=== PATIENT | male | born 1975 | race Caucasian/White ===

== ENCOUNTER 2020-04-09 16:24 | Outpatient (CLI) | payer OTHER, BC, SELFPAY ==
--- NOTE | ~2020-04-09 | MR_ITS ---
EXAMINATION: MR cervical spine wo con DATE: 04/09/2020 17:25 INDICATION: Left arm pain. TECHNIQUE: Magnetic resonance imaging (MRI) of the cervical spine was performed without intravenous c ontrast. Sequences included sagittal T2-weighted FSE, sagittal STIR FSE, sagittal T1-weighted FSE, ax ial MERGE, and axial T2-weighted FSE. COMPARISON: None FINDINGS: There is kyphosis of cervical spine. There is 2 mm retrolisthesis of C6 on C7. There is 5 d egrees levocurvature of cervical spine. Vertebral body heights are normal. There is mildly decreased disc height at C2-C3 C4-C5, and C5-C6 and moderately decreased disc height at C6-C7. The spinal cord signal intensity is normal. The following disc levels are specifically discussed: C2-C3: There is a central protrusion. There is no uncovertebral joint osteoarthritis. There is severe right and mild left facet joint osteoarthritis. There is mild right neural foraminal stenosis. There is mild central canal stenosis with ventral indentation of spinal cord. C3-C4: There is a central protrusion. There is mild bilateral uncovertebral joint osteoarthritis. The re is mild bilateral facet joint osteoarthritis. There is mild bilateral neural foraminal stenosis. T here is mild central canal stenosis. C4-C5: There is a central protrusion. There is mild bilateral uncovertebral joint osteoarthritis. The re is mild bilateral facet joint osteoarthritis. There is no neural foraminal stenosis. There is no c entral canal stenosis. C5-C6: The disc is bulging and has an annular fissure. There is mild bilateral uncovertebral joint os teoarthritis. There is mild bilateral facet joint osteoarthritis. There is no neural foraminal stenos is. There is mild central canal stenosis with ventral indentation of spinal cord. C6-C7: The disc is bulging. There is severe bilateral uncovertebral joint osteoarthritis. There is mi ld bilateral facet joint osteoarthritis. There is moderate right and mild left neural foraminal steno sis. There is mild central canal stenosis with ventral indentation of spinal cord. C7-T1: The disc does not extend beyond the endplate margin. There is no uncovertebral joint osteoarth ritis. There is moderate bilateral facet joint osteoarthritis. There is mild bilateral neural foramin al stenosis. There is no central canal stenosis. IMPRESSION: 1. Moderate cervical spondylosis. Reviewed, dictated and finalized at location B.
== END 2020-04-09 16:25 | disposition home or self-care (01) ==
PROVIDERS: PCP Family Medicine; Visit Provider Orthopaedic Surgery
DX: M79.605 Pain in left leg (principal); M47.892 Other spondylosis, cervical region
CPT/HCPCS: 72141

== ENCOUNTER 2021-06-04 14:48 | Emergency (ER) | payer SELFPAY ==
--- NOTE | ~2021-06-04 | XR_ITS ---
XR shoulder RT min 2V 06/04/2021 15:54 INDICATION: Right shoulder pain. PROCEDURE: 4 views right shoulder COMPARISON: 05/03/2020 FINDINGS: Fracture, dislocation or subluxation is not identified. The soft tissues appear within norm al limits. No foreign bodies are identified. IMPRESSION: 1: NO ACUTE BONE OR JOINT ABNORMALITY IDENTIFIED. Reviewed, dictated and finalized at location B.
[2021-06-04 15:18] VITALS: BP 130/84; PULSE 93; RESP 16; TEMP 37.1; O2SAT 99
--- NOTE | 2021-06-04 16:39 | ED.GENADULT ---
HPI - General Adult General Chief complaint: Extremity Injury, Upper <Jesus Cohen PA-C - Last Filed: 06/04/21 16:43> Stated complaint: shoulder injury <UBALDO Correa Last Filed: 06/04/21 16:43> Time Seen by Provider: 06/04/21 15:32 <UBALDO Correa Last Filed: 06/04/21 16:43> Source: patient and RN notes reviewed <Jesus Cohen PA-C - Last Filed: 06/04/21 16:43> Mode of arrival: ambulatory <UBALDO Correa Last Filed: 06/04/21 16:43> Limitations: no limitations <UBALDO Correa Last Filed: 06/04/21 16:43> History of Present Illness HPI narrative: Patient is a 46-year-old male who presents for evaluation of right shoulder pain after lifting an object he felt a grinding pain in the right shoulder is since had pain of the shoulder that is deep has history of prior injury with surgery several years ago denies radicular symptoms or paresthesias presents nondistressed <UBALDO Correa Last Filed: 06/04/21 16:43> Related Data Allergies/adverse reactions: Allergies Allergy/AdvReac Type Severity Reaction Status Date / Time naproxen Allergy Mild HIVES Verified 06/26/20 14:33 sulindac Allergy Mild HIVES Verified 06/26/20 14:33 doxycycline Allergy Unknown Unknown Verified 06/26/20 14:33 Sulfa (Sulfonamide Allergy Unknown Unknown Verified 06/26/20 14:33 Antibiotics) sulfanilamide Allergy Unknown Unknown Verified 06/26/20 14:33 tramadol AdvReac Severe Sweating Verified 06/26/20 14:33 <UBALDO Correa Last Filed: 06/04/21 16:43> Review of Systems Review of Systems: All systems reviewed & are unremarkable except as noted in HPI and below <UBALDO Correa Last Filed: 06/04/21 16:43> PMFSH Family History Family History: Family History Other Family history of arthritis Family history of emphysema Family history of malignant neoplasm of breast in first degree relative Family history of seizure disorder <Jesus Cohen PA-C - Last Filed: 06/04/21 16:43> Social History Social History: Social History Smoking packs per day: 0.75 Smoking cigarettes per day: 15.0 Years smoked: 0.25 Smoking pack-years: 0.19 Smoking status: Never smoker Tobacco type: cigarettes Second hand tobacco smoke exposure: No Additional smoking assessment comments: Pt declined offer of smoking cessation options today. Alcohol intake: current Drinks per week: 12 Substance use: never Substance use type: does not use <Jesus Cohen PA-C - Last Filed: 06/04/21 16:43> Exam Narrative: GENERAL: Well-appearing, well-nourished, and in no acute distress. HEAD: Normocephalic, atraumatic. EYES: PERRLA and EOMI. ENT: Nares clear, no rhinorrhea or epistaxis. Mucous membranes moist. NECK: Supple. No adenopathy or masses. CHEST: Clear to auscultation. No respiratory distress. No wheezes rales or rhonchi HEART: Regular rate and rhythm. No murmur heard. EXTREMITIES: Normal range of motion. No edema. Tenderness of the right rotator cuff musculature no deformities noted SKIN: Warm, dry, no rash. NEURO: No focal deficits. Alert and oriented x3. Neurovascularly intact. Capillary refill less than 2-second PSYCH: Normal mood and affect. <Jesus Cohen PA-C - Last Filed: 06/04/21 16:43> Course Course Emergency Course: Patient evaluated the emergency department nondistressed aware of case findings treatment plan and diagnosis will follow up with orthopedic surgery and primary care will be started on medications for his symptoms he is felt appropriate for outpatient reevaluation <Jesus Cohen PA-C - Last Filed: 06/04/21 16:43> Vital Signs Vital signs: Vital Signs Temperature 98.8 F 06/04/21 15:18 Pulse Rate 93 06/04/21 15:18 Respiratory Rate 16 06/04/21 15:1
[2021-06-04 17:15] VITALS: BP 131/82; PULSE 80; RESP 12; O2SAT 99
== END 2021-06-04 17:15 | disposition home or self-care (01) ==
PROVIDERS: Emergency Provider General Practice; PCP Family Medicine
DX: M25.511 Pain in right shoulder (principal); F17.210 Nicotine dependence, cigarettes, uncomplicated
CPT/HCPCS: 73030; 99283

== ENCOUNTER → 2021-08-05 02:55 | Outpatient (CLI) | payer BC, SELFPAY ==
[2021-08-05 19:47] LABS: SARS-CoV-2 RNA PCR Negative
== END ==
PROVIDERS: PCP Family Medicine; Visit Provider Family Medicine
DX: J06.9 Acute upper respiratory infection, unspecified (principal); Z20.822 Contact with and (suspected) exposure to COVID-19
CPT/HCPCS: C9803; U0003; U0005

== ENCOUNTER 2022-06-02 12:37 | Outpatient (CLI) | payer BC, SELFPAY ==
--- NOTE | ~2022-06-02 | XR_ITS ---
EXAMINATION: XR lumbar spine min 4V DATE: 06/02/2022 12:57 INDICATION: Low back pain TECHNIQUE: Anteroposterior, lateral, and bilateral oblique views of the lumbar spine, and cone-down l ateral view of the lumbosacral junction were obtained. COMPARISON: None. FINDINGS: Bone alignment is normal. There is no fracture. The vertebral body heights are normal. The intervertebral disc spaces are maintained. Small anterior/superior endplate osteophytes are seen at L 4. There is mild facet joint osteoarthritis in the lower lumbar spine. IMPRESSION: 1. Mild lumbar spondylosis without acute findings. Reviewed, dictated and finalized at location B.
== END 2022-06-02 12:38 | disposition home or self-care (01) ==
LOC: ANHIMG 12:43
PROVIDERS: PCP Family Medicine; Visit Provider Physician Assistant
DX: M47.896 Other spondylosis, lumbar region (principal)
CPT/HCPCS: 72110

== ENCOUNTER 2023-02-06 09:29 | Emergency (ER) | payer BC, SELFPAY ==
--- NOTE | ~2023-02-06 | US_ITS ---
Limited Abdominal Sonogram: Real-time sonographic imaging of the right upper quadrant was performed. Clinical History: Right upper quadrant pain Findings: The liver appears echogenic, with no evidence of mass lesion or bile duct dilatation. Main portal vein demonstrates normal direction of flow. The gallbladder is partially distended, and appea rs normal with no evidence of gallstone or wall thickening. The common bile duct measures 2 mm. The visualized pancreas, aorta, and IVC are unremarkable. Impression: Diffuse fatty infiltration of liver. Reviewed, dictated and finalized at location M. Impression: Diffuse fatty infiltration of liver.
[2023-02-06 09:43] VITALS: BP 139/95; PULSE 99; RESP 18; TEMP 36.6; O2SAT 100
--- NOTE | 2023-02-06 09:55 | ED.GENADULT ---
HPI - General Adult General Chief complaint: Abdominal Pain Stated complaint: ruq abd pain Time Seen by Provider: 02/06/23 09:43 Source: patient Mode of arrival: ambulatory Limitations: no limitations History of Present Illness HPI narrative: This is a 47-year-old male with PMH of IBS who presents to the ED with chief complaint of right upper quadrant pain at x60 hours. Patient states that he has had this pain since Monday night. States he deals with the similar pains intermittently with the IBS. States that it was worse the previous 2 days but wanted to get it checked out today. States that he has been managing his IBS with diet control over the past couple of years. He does not see primary care or GI for this. Reports intermittent loose stools. Denies fevers, chills, nausea, vomiting, chest pain, shortness of breath, flank pain, urinary symptoms. Related Data Allergies Allergy/AdvReac Type Severity Reaction Status Date / Time naproxen Allergy Mild HIVES Verified 06/01/22 14:22 sulindac Allergy Mild HIVES Verified 06/01/22 14:22 doxycycline Allergy Unknown Unknown Verified 06/01/22 14:22 Sulfa (Sulfonamide Allergy Unknown Unknown Verified 06/01/22 14:22 Antibiotics) sulfanilamide Allergy Unknown Unknown Verified 06/01/22 14:22 tramadol AdvReac Severe Sweating Verified 06/01/22 14:22 PMFSH Past Medical History Medical History BMI greater than 30 Degeneration of spine IBS (irritable bowel syndrome) Right shoulder injury (2004) tendon Surgical History Surgical History History of shoulder surgery right side Family History Family History Other Family history of arthritis Family history of emphysema Family history of malignant neoplasm of breast in first degree relative Family history of seizure disorder Social History Social History (Updated 06/01/22 @ 14:26 by Sosa Melvin CMA) Smoking packs per day: 0.5 Smoking cigarettes per day: 10.0 Years smoked: 0.25 Smoking pack-years: 0.13 Smoking status: Current every day smoker Tobacco type: cigarettes Second hand tobacco smoke exposure: No Alcohol intake: current Drinks per week: 8 Substance use: never Substance use type: does not use Exam Narrative: GENERAL: Well-appearing, well-nourished, and in no acute distress. HEAD: Normocephalic, atraumatic. EYES: PERRLA and EOMI. ENT: Nares clear, no rhinorrhea or epistaxis. Mucous membranes moist. Oropharynx without tonsillar hypertrophy exudate or other lesions. NECK: Supple. No adenopathy or masses. CHEST: No respiratory distress. Clear to auscultation. No wheezes rales or rhonchi HEART: Regular rate and rhythm. No murmur heard. Normal peripheral pulses. ABDOMEN: Mild right upper quadrant tenderness. Soft, otherwise nontender, nondistended, normal active bowel sounds. MSK: Normal range of motion. No edema. SKIN: Warm, dry, no rash. NEURO: Alert and oriented x3. No focal deficits. PSYCH: Normal mood and affect. Course Vital Signs Vital signs: Vital Signs Temperature 97.9 F 02/06/23 09:43 Pulse Rate 99 02/06/23 09:43 Respiratory Rate 18 02/06/23 09:43 Blood Pressure 139/95 H 02/06/23 09:43 Pulse Oximetry 100 02/06/23 09:43 Oxygen Delivery Room Air 02/06/23 09:43 Temperature 97.9 F 02/06/23 09:43 Pulse Rate 99 02/06/23 09:43 Respiratory Rate 18 02/06/23 09:43 Blood Pressure 139/95 H 02/06/23 09:43 Pulse Oximetry 100 02/06/23 09:43 Oxygen Delivery Room Air 02/06/23 09:43 Medical Decision Making [facility] Narrative Medical decision making narrative: This is a 47-year-old male who presents to the ED with chief complaint of right upper quadrant pain x2 days. Vitals are normal. Exam shows mild tenderness to the right upper quadrant, otherwise exam i
[2023-02-06 10:07] LABS: Basophils Percent Auto 0.4 % (0.2-1.2); Eosinophils Absolute Auto 0.1 K/mm3 (0-0.3); Eosinophils Percent Auto 1.2 % (0-4.4); Hematocrit 39.9 % (42.0-52.0); Hemoglobin 14.2 g/dL (14.0-18.0); Immature Granulocyte Absolute 0.04 K/mm3 (0.00-0.031); Immature Granulocyte Percent A 0.6 % (0-0.5); Lymphocytes Percent Auto 20.7 % (18.3-44.2); Mean Corpuscular HGB Conc 35.6 g/dl (32-36); Mean Corpuscular Hemoglobin 31.5 pg (26-34); Mean Corpuscular Volume 88.5 fl (80-100); Mean Platelet Volume 9.4 fl (7.4-10.4); Monocytes Absolute Auto 0.5 K/mm3 (0.1-0.6); Monocytes Percent Auto 7.9 % (2.6-8.5); Neutrophils Absolute Auto 4.7 K/mm3 (1.3-6.7); Neutrophils Percent Auto 69.2 % (45.5-73.1); Platelet Count Result 262 k/mm3 (150-375); Red Blood Count 4.51 M/mm3 (4.6-6.20); Red Cell Distribution Width 12.1 % (11.5-14.5); White Blood Count 6.8 K/mm3 (4.5-10.0)
[2023-02-06] MEDS: SODIUM CHLORIDE 0.9% IV 1,000 ML 999 ML IV CONT (10:12)
[2023-02-06] MEDS: DICYCLOMINE HCL INJ 20 MG/2 ML VIAL IM (10:12)
[2023-02-06 10:16] LABS: Alanine Aminotransferase 31 U/L (6-50); Albumin Level 4.8 g/dL (3.5-5.1); Alkaline Phosphatase 61 U/L (38-126); Anion Gap 8 mmol/L (8-16); Aspartate Amino Transferase 28 U/L (17-59); Bilirubin,Total 0.5 mg/dL (0.2-1.3); Blood Urea Nitrogen 15 mg/dL (9-20); Calcium 9.6 mg/dL (8.4-10.2); Carbon Dioxide 30 mmol/L (22-30); Chloride 103 mmol/L (98-107); Estimated CRCL calculation 86 ml/min; Estimated Glomerular Filt Rate > 60; Glucose 98 mg/dL (65-110); Lipase 71 U/L (23-300); Sodium 141 mmol/L (137-145)
[2023-02-06 10:19] LABS: Appearance Urine Clear (Clear); Bilirubin Urine Negative (Negative); Blood Urine Negative (Negative); Color Urine Yellow (Yellow); Glucose Urine UA Negative (Negative); Ketones Urine Negative (Negative); Leukocyte Esterase Ur Negative LEU/UL (Negative); Nitrate Urine Negative (Negative); Protein Urine Negative (Negative); Specific Grav Ur 1.014 (1.001-1.035); Urobilinogen Urine 0.2 mg/dL (<2.0)
[2023-02-06 10:50] LABS: Add Urine Microscopic? NO
[2023-02-06 11:23] VITALS: BP 125/85; PULSE 74; RESP 16; O2SAT 99
== END 2023-02-06 11:25 | disposition home or self-care (01) ==
PROVIDERS: Emergency Provider Physician Assistant; PCP Family Medicine
DX: R10.31 Right lower quadrant pain (principal); F17.210 Nicotine dependence, cigarettes, uncomplicated
CPT/HCPCS: 36415; 76705; 80053; 81003; 83690; 85025; 96360; 96372; 99284; J0500; J7030

== ENCOUNTER 2023-03-07 01:55 | Day surgery (SDC) | payer BC, SELFPAY ==
[2023-02-24 13:23] VITALS: BMI 31.6
[2023-03-07 09:01] VITALS: BP 131/82; PULSE 74; RESP 20; TEMP 36.6; O2SAT 98
[2023-03-07] MEDS: LACTATED RINGERS 1,000 ML 150 ML IV CONT (09:12)
--- NOTE | 2023-03-07 09:21 | WPDANESEPPF ---
Anes - Initial Pre Proc Eval Procedure: Operation Date: 03/07/23 10:15 Proposed Procedures p Esophagogastroduodenoscopy & Colonoscopy - Mohamud Soliz MD Date/Time: 03/07/23 09:21 Surgeon: Mohamud Soliz MD Pre Op Diagnosis: right upper quad pain, mixed IBS Patient Data Age: 48 Gender: M Height: 1.78 m Weight: 100.6 kg Last Vital Signs Temp 98 F 03/07/23 09:01 Pulse 74 03/07/23 09:01 Resp 20 03/07/23 09:01 BP 131/82 03/07/23 09:01 Pulse Ox 98 03/07/23 09:01 O2 Del Method Room Air 03/07/23 09:01 Allergies Allergy/AdvReac Type Severity Reaction Status Date / Time naproxen Allergy Mild HIVES Verified 03/07/23 08:58 sulindac Allergy Mild HIVES Verified 03/07/23 08:58 doxycycline Allergy Unknown Unknown Verified 03/07/23 08:58 Sulfa (Sulfonamide Allergy Unknown Unknown Verified 03/07/23 08:58 Antibiotics) sulfanilamide Allergy Unknown Unknown Verified 03/07/23 08:58 tramadol AdvReac Severe Sweating Verified 03/07/23 08:58 Home Medications Medication Instructions Recorded Confirmed Type metoprolol succinate 50 mg See Rx Instructions .Route 10/09/22 03/07/23 Rx tablet,extended release 24 hr .COMPLEX #90 tabs cyclobenzaprine 10 mg tablet 10 mg PO TID PRN muscle spasm #90 11/28/22 03/01/23 Rx tabs omeprazole 40 mg capsule,delayed 40 mg PO DAILY #30 caps 02/15/23 03/01/23 Rx release dicyclomine 20 mg tablet 20 mg PO QID PRN cramping 02/24/23 03/01/23 History docusate sodium 250 mg capsule 500 mg PO DAILY 02/24/23 03/01/23 History fexofenadine 30 mg tablet 60 mg PO DAILY 02/24/23 03/01/23 History loratadine 10 mg tablet (Claritin) 10 mg PO DAILY 02/24/23 03/01/23 History sertraline 50 mg tablet 50 mg PO DAILY #30 tabs 03/01/23 03/01/23 Rx rosuvastatin 10 mg tablet (Crestor) 10 mg PO DAILY #90 tabs 03/02/23 03/07/23 Rx Patient hx anesthesia problems: none Family hx anesthesia problems: none Results Review: All pre-operative results and documents have been reviewed as part of the pre-operative evaluation. [facility] Past Medical History Medical History Abdominal bloating BMI greater than 30 Degeneration of spine IBS (irritable bowel syndrome) Mixed irritable bowel syndrome Right shoulder injury (2004) tendon RUQ discomfort Surgical History Surgical History History of shoulder surgery right side Family History Family History Other Family history of arthritis Family history of emphysema Family history of malignant neoplasm of breast in first degree relative Family history of seizure disorder Social History Social History Smoking packs per day: 0.5 Smoking cigarettes per day: 10.0 Years smoked: 4 Smoking pack-years: 2.00 Smoking status: Former smoker Tobacco type: cigarettes Second hand tobacco smoke exposure: No Alcohol intake: current Drinks per week: 8 Alcohol use details: Hx abuse. Now only drinks occasionally. Substance use: never Substance use type: does not use Lack of Transportation: No Lack of Food: Never True Current Housing: I Have Housing Concerned About Future Housing: No Difficulty Paying Gas/Electric Bills: No Difficulty Paying for Meds: No Currently Unemployed: No Education: Trade/Vocational Certificate Difficulty w/ Childcare or Family Care: No Living arrangements: with family Occupation/Education: occupation Gender identity (if verbalized by the patient): Male Spiritual care concerns: No Agree to blood products: Yes Anes - Eval Final PreProcedure Day of Procedure 03/07/23 09:21 Patient weight: obese Heart: regular rate and rhythm Lungs: clear to auscultation Airway: Mallampati scale class II Neurological: alert and oriented
--- NOTE | 2023-03-07 09:57 | WPDHPUPDATE1 ---
History and Physical Update Update Date/Time: 03/07/23 09:57 History and Physical has been reviewed, including an updated exam of the patient. There are NO changes in the patient's condition. Risks, benefits, and alternatives have been discussed and questions answered. Patient agrees to proceed with procedure.
--- NOTE | 2023-03-07 10:15 | SUR.OPER ---
EGD ended 1009, colonoscopy started 1014
[2023-03-07 10:35] VITALS: BP 112/70; PULSE 68; RESP 15; O2SAT 98
[2023-03-07 10:45] VITALS: BP 114/73; PULSE 77; RESP 21; O2SAT 98
[2023-03-07 10:52] VITALS: BP 115/83; PULSE 70; RESP 17; O2SAT 99
== END 2023-03-07 11:37 | disposition home or self-care (01) ==
PROVIDERS: PCP Family Medicine; Visit Provider Internal Medicine Gastroenterology
PROC: 0DJ08ZZ Inspection of Upper Intestinal Tract, Via Natural or Artificial Opening Endoscopic (ICD-10-PCS; CPT 43235; principal; 2023-03-07 10:15)
DX: Z12.11 Encounter for screening for malignant neoplasm of colon (principal); D12.2 Benign neoplasm of ascending colon; R10.11 Right upper quadrant pain; K76.0 Fatty (change of) liver, not elsewhere classified; K58.2 Mixed irritable bowel syndrome; Z87.891 Personal history of nicotine dependence; E66.9 Obesity, unspecified; Z68.31 Body mass index [BMI] 31.0-31.9, adult
CPT/HCPCS: 45385; 43239; 88305; J2704; J7120

== ENCOUNTER → 2023-05-15 10:43 | Outpatient (CLI) | payer BC, SELFPAY ==
--- NOTE | ~2023-05-15 | US_ITS ---
EXAMINATION: US thyroid DATE: 05/15/2023 11:18 INDICATION: Thyroid nodule. Iodine deficiency related diffuse goiter. TECHNIQUE: Multiple ultrasound images of the thyroid were obtained. COMPARISON: None. FINDINGS: The right thyroid lobe measures 4.7 x 1.5 x 1.6 cm. The left thyroid lobe measures 4.0 x 1.4 x 1.5 c m. There is normal echotexture and echogenicity throughout the thyroid gland. No discrete nodules id entified. Normal vascular flow is present. IMPRESSION: 1. Normal thyroid. Reviewed, dictated and finalized at location E. IMPRESSION: 1. Normal thyroid.
== END ==
PROVIDERS: PCP Physician Assistant; Visit Provider Physician Assistant
DX: E01.0 Iodine-deficiency related diffuse (endemic) goiter (principal)
CPT/HCPCS: 76536

== ENCOUNTER 2023-06-03 10:09 | Outpatient (CLI) | payer BC, SELFPAY ==
--- NOTE | 2023-06-03 10:21 | ECG_ITS ---
Measurements Intervals [place] Rate: 77 P: 16 CT: 132 QRS: 16 QRSD: 103 T: 11 QT: 387 QTc: 438 Interpretive Statements SINUS RHYTHM NORMAL ELECTROCARDIOGRAM NO PREVIOUS ECG AVAILABLE FOR COMPARISON Electronically Signed On 06-04-2023 8:14:45 CDT by Willard Garner M.D.
[2023-06-03 11:20] LABS: Alanine Aminotransferase 57 U/L (6-50); Albumin Level 4.5 g/dL (3.5-5.1); Alkaline Phosphatase 74 U/L (38-126); Anion Gap 6 mmol/L (8-16); Aspartate Amino Transferase 45 U/L (17-59); Bilirubin,Total 0.6 mg/dL (0.2-1.3); Blood Urea Nitrogen 12 mg/dL (9-20); Calcium 9.1 mg/dL (8.4-10.2); Carbon Dioxide 30 mmol/L (22-30); Chloride 103 mmol/L (98-107); Cholesterol 209 mg/dL (0-200); Estimated Glomerular Filt Rate > 60; Glucose 92 mg/dL (65-110); HDL Direct 42 mg/dL; Potassium 4.1 mmol/L (3.4-5.0); Sodium 139 mmol/L (137-145); Triglycerides 449 mg/dL (<150)
[2023-06-03 11:32] LABS: LDL Cholesterol Direct 89 mg/dL
[2023-06-03 11:49] LABS: Prostate Specific Antigen 0.3 ng/mL (< OR = 4.0); Thyroid Stimulating Hormone 0.615 uIU/mL (0.465-4.680)
[2023-06-03 11:54] LABS: Free T4 Free Thyroxine 0.74 ng/mL (0.78-2.19)
== END 2023-06-03 10:10 | disposition home or self-care (01) ==
LOC: ANHLAB 10:10
PROVIDERS: PCP Physician Assistant; Visit Provider Physician Assistant
DX: Z12.5 Encounter for screening for malignant neoplasm of prostate (principal); R53.83 Other fatigue; I10 Essential (primary) hypertension; Z13.1 Encounter for screening for diabetes mellitus; Z13.220 Encounter for screening for lipoid disorders
CPT/HCPCS: 36415; 80053; 80061; 84153; 84439; 84443; 93005; G0103

== ENCOUNTER 2023-07-25 11:58 | Emergency (ER) | payer OTHER, SELFPAY ==
[2023-07-25 12:09] VITALS: BP 117/68; PULSE 89; RESP 16; TEMP 37.3; O2SAT 100
--- NOTE | 2023-07-25 12:45 | ED.URI ---
HPI - URI/Sore Throat General Chief Complaint: Upper Respiratory Infection Stated Complaint: COVID+ Time Seen by Provider: 07/25/23 12:46 Source: patient, RN notes reviewed and old records reviewed Mode of arrival: ambulatory Limitations: no limitations History of Present Illness HPI Narrative: 48-year-old male presents to the [facility] after tested positive for COVID at home. Symptoms started yesterday. Needing a work note. Patient reports generalized body aches, fevers of 100.6, sore throat since yesterday. Patient also reports coughing, dry nonproductive Reports that he has taken Tylenol Onset (ago): day(s) (1) Related Data Home Medications Medication Instructions Recorded Confirmed fexofenadine 30 mg tablet 60 mg PO DAILY 02/24/23 07/25/23 loratadine 10 mg tablet (Claritin) 10 mg PO DAILY 02/24/23 12 Allergies Allergy/AdvReac Type Severity Reaction Status Date / Time naproxen Allergy Mild HIVES Verified 07/25/23 12:23 sulindac Allergy Mild HIVES Verified 07/25/23 12:23 doxycycline Allergy Unknown Unknown Verified 07/25/23 12:23 Sulfa (Sulfonamide Allergy Unknown Unknown Verified 07/25/23 12:23 Antibiotics) sulfanilamide Allergy Unknown Unknown Verified 07/25/23 12:23 tramadol AdvReac Severe Sweating Verified 07/25/23 12:23 Review of Systems Review of Systems: All systems reviewed & are unremarkable except as noted in HPI and below Constitutional: Constitutional: Reports as per HPI, Reports body ache(s), Reports fatigue and Reports fever(s) Eyes: Eyes: Reports no additional eye complaints ENT: Reports as per HPI and Reports sore throat Cardiovascular: Cardiovascular: Reports no additional cardiovascular complaints, Denies chest pain and Denies dyspnea Respiratory: Respiratory: Reports as per HPI, Denies chest congestion, Reports cough and Denies dyspnea Gastrointestinal: Gastrointestinal: Reports no additional gastrointestinal complaints, Denies abdominal pain, Denies nausea and Denies vomiting Musculoskeletal: Musculoskeletal: Reports as per HPI and Reports myalgias Integumentary/Breasts: Skin/Breast: Reports system reviewed and no additional complaints, except as docu Neurologic: Reports system reviewed and no additional complaints, except as documented Psychiatric: Psychiatric: Reports no additional psychiatric complaints Allergic/Immunologic: Allergic/Immunologic: Reports no additional allergic/immunologic complaints PMFSH Past Medical History Medical History Abdominal bloating Anxiety BMI greater than 30 Degeneration of spine IBS (irritable bowel syndrome) Mixed irritable bowel syndrome Right shoulder injury (2004) tendon RUQ discomfort Surgical History Surgical History History of shoulder surgery right side Family History Family History Other Family history of arthritis Family history of emphysema Family history of malignant neoplasm of breast in first degree relative Family history of seizure disorder Social History Social History Smoking packs per day: 0.5 Smoking cigarettes per day: 10.0 Years smoked: 4 Smoking pack-years: 2.00 Smoking status: Former smoker Tobacco type: cigarettes Second hand tobacco smoke exposure: No Alcohol intake: current Drinks per week: 8 Alcohol use details: Hx abuse. Now only drinks occasionally. Substance use: never Substance use type: does not use Lack of Transportation: No Lack of Food: Never True Current Housing: I Have Housing Concerned About Future Housing: No Difficulty Paying Gas/Electric Bills: No Difficulty Paying for Meds: No Currently Unemployed: No Education: Trade/Vocational Certificate Difficulty w/ Childcare or Family Care: No Living arrangements: with famil
== END 2023-07-25 12:59 | disposition home or self-care (01) ==
PROVIDERS: Emergency Provider Nurse Practitioner; PCP Family Medicine
DX: U07.1 COVID-19 (principal); F41.9 Anxiety disorder, unspecified
CPT/HCPCS: 87426; 99213; C9803; G0463

== ENCOUNTER 2023-10-13 10:51 | Emergency (ER) | payer OTHER, SELFPAY ==
--- NOTE | 2023-10-13 10:52 | ED.EAR ---
HPI - Ear Problem General Chief complaint: Ear Stated complaint: Right Ear Irritation Time Seen by Provider: 10/13/23 10:52 Source: patient Mode of arrival: ambulatory Limitations: no limitations History of Present Illness HPI Narrative: Patient is a 48-year-old male who presents with 2 weeks of right ear irritation, intermittent dizziness and nausea and sinus pressure. Patient takes daily allergy medicine. Denies any fever, chills, vomiting, diarrhea, sore throat, cough. MD Complaint: ear pain Related Data Home Medications Medication Instructions Recorded Confirmed fexofenadine 30 mg tablet 60 mg PO DAILY 02/24/23 10/13/23 loratadine 10 mg tablet (Claritin) 10 mg PO DAILY 02/24/23 10/13/23 fluticasone propionate 50 2 spray intranasal DAILY 10/13/23 10/13/23 mcg/actuation nasal spray,suspension Allergies Allergy/AdvReac Type Severity Reaction Status Date / Time naproxen Allergy Mild HIVES Verified 10/13/23 10:55 sulindac Allergy Mild HIVES Verified 10/13/23 10:55 doxycycline Allergy Unknown Unknown Verified 10/13/23 10:55 Sulfa (Sulfonamide Allergy Unknown Unknown Verified 10/13/23 10:55 Antibiotics) sulfanilamide Allergy Unknown Unknown Verified 10/13/23 10:55 tramadol AdvReac Severe Sweating Verified 10/13/23 10:55 Review of Systems Review of Systems: All systems reviewed & are unremarkable except as noted in HPI and below Constitutional: Constitutional: Denies body ache(s), Denies chills, Denies fever(s), Denies headache(s) and Denies malaise Eyes: Eyes: Denies blurry vision, Denies eye discharge and Denies irritation ENT: Reports otalgia, Denies headache(s), Denies nasal congestion, Denies nasal discharge and Denies sore throat Cardiovascular: Cardiovascular: Denies chest pain, Denies edema, Denies palpitations and Denies dyspnea on exertion Respiratory: Respiratory: Denies cough and Denies dyspnea on exertion Gastrointestinal: Gastrointestinal: Denies abdominal pain, Denies diarrhea, Reports nausea and Denies vomiting Musculoskeletal: Musculoskeletal: Denies back pain, Denies arthralgias and Denies muscle weakness Integumentary/Breasts: Skin/Breast: Denies pruritus and Denies rash Neurologic: Reports dizziness and Denies headache(s) Psychiatric: Psychiatric: Reports no additional psychiatric complaints Endocrine: Endocrine: Denies palpitations PMFSH Past Medical History Medical History Abdominal bloating Anxiety BMI greater than 30 Degeneration of spine IBS (irritable bowel syndrome) Mixed irritable bowel syndrome Right shoulder injury (2004) tendon RUQ discomfort Surgical History Surgical History History of shoulder surgery right side Family History Family History Other Family history of arthritis Family history of emphysema Family history of malignant neoplasm of breast in first degree relative Family history of seizure disorder Social History Social History Smoking packs per day: 0.5 Smoking cigarettes per day: 10.0 Years smoked: 4 Smoking pack-years: 2.00 Smoking status: Former smoker Tobacco type: cigarettes Second hand tobacco smoke exposure: No Alcohol intake: current Drinks per week: 8 Alcohol use details: Hx abuse. Now only drinks occasionally. Substance use: never Substance use type: does not use Lack of Transportation: No Lack of Food: Never True Current Housing: I Have Housing Concerned About Future Housing: No Difficulty Paying Gas/Electric Bills: No Difficulty Paying for Meds: No Currently Unemployed: No Education: Trade/Vocational Certificate Difficulty w/ Childcare or Family Care: No Living arrangements: with family Occupation/Education: occupation Gender identity (if verbalized by polo
[2023-10-13 11:00] VITALS: BP 126/73; PULSE 74; RESP 18; TEMP 36.8; O2SAT 100
== END 2023-10-13 11:20 | disposition home or self-care (01) ==
PROVIDERS: Emergency Provider Nurse Practitioner Family; PCP Family Medicine
DX: J01.40 Acute pansinusitis, unspecified (principal); Z87.891 Personal history of nicotine dependence; F41.9 Anxiety disorder, unspecified
CPT/HCPCS: 99213; G0463

== ENCOUNTER 2023-11-08 09:10 | Outpatient (CLI) | payer OTHER, SELFPAY ==
[2023-11-08 09:56] LABS: Alanine Aminotransferase 47 U/L (6-50); Albumin Level 4.9 g/dL (3.5-5.1); Alkaline Phosphatase 55 U/L (38-126); Anion Gap 7 mmol/L (4-12); Aspartate Amino Transferase 41 U/L (17-59); Bilirubin,Total 0.6 mg/dL (0.2-1.3); Blood Urea Nitrogen 15 mg/dL (9-20); Calcium 9.6 mg/dL (8.4-10.2); Carbon Dioxide 29 mmol/L (22-30); Chloride 101 mmol/L (98-107); Cholesterol 213 mg/dL (0-200); Estimated Glomerular Filt Rate > 60; Glucose 96 mg/dL (65-110); HDL Direct 48 mg/dL; Potassium 4.5 mmol/L (3.4-5.0); Sodium 137 mmol/L (137-145); Triglycerides 254 mg/dL (<150)
[2023-11-08 10:07] LABS: LDL Cholesterol Direct 121 mg/dL
[2023-11-08 10:22] LABS: Free T4 Free Thyroxine 0.69 ng/mL (0.78-2.19)
[2023-11-17 11:09] LABS: T3 Free 2.8 pg/mL
== END 2023-11-08 09:11 | disposition home or self-care (01) ==
LOC: ANHLAB 09:12
PROVIDERS: PCP Family Medicine; Visit Provider Physician Assistant
DX: R53.83 Other fatigue (principal); Z13.1 Encounter for screening for diabetes mellitus; Z13.220 Encounter for screening for lipoid disorders
CPT/HCPCS: 36415; 80053; 80061; 84439; 84443; 84480

== ENCOUNTER 2024-05-10 21:41 | Inpatient (IN) | payer OTHER, SELFPAY ==
--- NOTE | ~2024-05-10 | CT_ITS ---
CT of the Abdomen and Pelvis: Indication: Postop fever, appendicitis Technique: 2.5 mm axial scans were obtained through the abdomen and pelvis following intravenous adm inistration of 100 cc of Omnipaque 350. Dose reduction technique was used on this scan by utilizing a utomated exposure control and iterative reconstruction technique. The dose-length product (DLP) was 1 242.31 mGy-cm. COMPARISON: 05/03/2024 Findings: Scans through the lung bases are unremarkable. There is diffuse hepatic steatosis. The spleen, pancreas, gallbladder, adrenals and kidneys are withi n normal limits. There are atherosclerotic calcifications of the aorta. No lymphadenopathy. Percutaneous drainage catheter in place. No bowel obstruction evident. There is extensive haziness th roughout the mesentery, mild inflammatory or postoperative change. There is a small abscess in the an terior right lower quadrant measuring 3.6 x 1.7 x 1.8 cm (axial image 144, coronal image 37). Possibl e additional small pelvic abscess, measuring 2.2 cm (coronal image 86, axial image 167). Soft tissue gas in the anterior subcutaneous soft tissues and scrotum is probably related to recent surgery. Images through the pelvis were performed. Urinary bladder unremarkable. Prostate gland unremarkable. Impression: 3.6 x 1.7 x 1.8 cm anterior right lower quadrant abscess. Possible additional 2.2 cm pelvic abscess. Please see details above. Extensive haziness throughout the mesentery could reflect residual inflammatory change and/or postope rative change. Percutaneous drainage catheter in place. Diffuse hepatic steatosis. Reviewed, dictated and finalized at location . Impression: 3.6 x 1.7 x 1.8 cm anterior right lower quadrant abscess. Possible additional 2 .2 cm pelvic abscess. Please see details above. Extensive haziness throughout the mesentery could reflect residual inflammatory change and/or postoperative change. Percutaneous drainage catheter in place. Diffuse hepatic steatosis.
--- NOTE | ~2024-05-10 | CT_ITS ---
EXAMINATION: CT abdomen pelvis w con DATE: 05/11/2024 01:00 INDICATION: Abdomen pain TECHNIQUE: Computed tomography (CT) of the abdomen and pelvis was performed with 100 cc Omnipaque 350 intravenous contrast. The dose-length product was 1032.93 mGy-cm. Automated exposure control and ite rative reconstruction technique were employed. COMPARISON: CT dated 01/27/2012. FINDINGS: Heart size normal. No significant pleural or pericardial effusion. Fatty infiltration of th e liver. Calcified granulomas of the spleen. The pancreas, adrenal glands and kidneys are unremarkabl e. Gallbladder is present. There is acute appendicitis. Appendix measures 1.6 cm transversely with parmar rrounding inflammatory changes. No evidence for perforation or abscess. Nonobstructive bowel gas seun rui. No free air or free fluid. IMPRESSION: 1. Acute uncomplicated appendicitis. Reviewed, dictated and finalized at location B.
[2024-05-10 22:03] VITALS: BP 136/67; PULSE 86; RESP 20; TEMP 37.1; O2SAT 98
[2024-05-11] VITALS (17 sets, daily range): BP systolic 112–156; BP diastolic 66–98; PULSE 71–107; RESP 11–20; TEMP 36.8–37.4; O2SAT 94–100; BMI 32.0
[2024-05-11 00:24] LABS: Basophils Percent Auto 0.2 % (0.2-1.2); Eosinophils Percent Auto 0.1 % (0-4.4); Hematocrit 33.4 % (42.0-52.0); Hemoglobin 11.9 g/dL (14.0-18.0); Immature Granulocyte Absolute 0.09 K/mm3 (0.00-0.031); Immature Granulocyte Percent A 0.5 % (0-0.5); Lymphocytes Absolute Auto 0.76 K/mm3 (0.9-3.2); Lymphocytes Percent Auto 4.4 % (18.3-44.2); Mean Corpuscular HGB Conc 35.6 g/dl (32-36); Mean Corpuscular Hemoglobin 32.4 pg (26-34); Mean Platelet Volume 9.6 fl (7.4-10.4); Neutrophils Absolute Auto 15.3 K/mm3 (1.3-6.7); Neutrophils Percent Auto 88.8 % (45.5-73.1); Platelet Count Result 310 k/mm3 (150-375); Red Blood Count 3.67 M/mm3 (4.6-6.20); Red Cell Distribution Width 12.4 % (11.5-14.5); White Blood Count 17.3 K/mm3 (4.5-10.0)
[2024-05-11 00:26] LABS: Add Urine Microscopic? YES; Appearance Urine Clear (Clear); Bacteria Urine None Seen /hpf; Bilirubin Urine Negative (Negative); Blood Urine Negative (Negative); Color Urine Yellow (Yellow); Glucose Urine UA Negative (Negative); Ketones Urine Negative (Negative); Leukocyte Esterase Ur Negative LEU/UL (Negative); Nitrate Urine Negative (Negative); Non Pathogenic Casts 0-2; Protein Urine 2+ mg/dL (Negative); RBC Urine 0-2 /hpf (0-2); Specific Grav Ur 1.024 (1.001-1.035); Squamous Epithelial Cell Urine None Seen /hpf (Few); WBC Urine 0-5 /hpf (0-3); pH Urine 8.5 (5.0-9.0)
[2024-05-11 00:30] LABS: Alanine Aminotransferase 31 U/L (6-50); Albumin Level 5.1 g/dL (3.5-5.1); Alkaline Phosphatase 55 U/L (38-126); Anion Gap 15 mmol/L (4-12); Aspartate Amino Transferase 30 U/L (17-59); Bilirubin,Total 0.7 mg/dL (0.2-1.3); Blood Urea Nitrogen 13 mg/dL (9-20); Calcium 9.2 mg/dL (8.4-10.2); Carbon Dioxide 26 mmol/L (22-30); Chloride 97 mmol/L (98-107); Estimated CRCL calculation 92 ml/min; Estimated Glomerular Filt Rate > 60; Glucose 133 mg/dL (65-110); Lipase 29 U/L (23-300); Potassium 4.3 mmol/L (3.4-5.0); Sodium 138 mmol/L (137-145)
[2024-05-11] MEDS: ONDANSETRON INJ 4 MG/2 ML VIAL IV PUSH (01:23)
[2024-05-11] MEDS: MORPHINE SULFATE (*CRX) 4 MG/ML INJ IV PUSH (01:23)
[2024-05-11] MEDS: LACTATED RINGERS 1,000 ML 999 ML IV CONT (01:24)
[2024-05-11] MEDS: PIPERACILLIN/TAZ 4.5G/NS 100ML 4.5 GM/100 ML BAG IVPB ×2 (02:37→09:39)
--- NOTE | 2024-05-11 02:44 | ED.ABDPAIN ---
HPI - Abdominal Pain General Chief Complaint: Abdominal Pain Stated Complaint: Abd pain, n/v Time Seen by Provider: 05/10/24 23:50 History of Present Illness HPI narrative: 49-year-old male with history of hypertension, hyperlipidemia, IBS and anxiety. He presents to the emergency room with a chief complaint of right-sided abdominal pain. Symptoms are going on for several days, worsening in intensity associated with nausea and vomiting. No urinary complaints, no dysuria, hematuria or difficulties in the restroom. Subjective fever and chills at home. Patient states he feels like this is an episode of his IBS. Denies any recent surgeries, no abdominal surgeries in the past, with otherwise is normal state of health and denies any recent injuries or trauma. Related Data Home Medications Medication Instructions Recorded Confirmed fexofenadine 30 mg tablet 60 mg PO DAILY 02/24/23 10/13/23 loratadine 10 mg tablet (Claritin) 10 mg PO DAILY 02/24/23 10/13/23 fluticasone propionate 50 2 spray intranasal DAILY 10/13/23 10/13/23 mcg/actuation nasal spray,suspension Allergies Allergy/AdvReac Type Severity Reaction Status Date / Time naproxen Allergy Mild HIVES Verified 05/10/24 22:02 sulindac Allergy Mild HIVES Verified 05/10/24 22:02 doxycycline Allergy Unknown Unknown Verified 05/10/24 22:02 Sulfa (Sulfonamide Allergy Unknown Unknown Verified 05/10/24 22:02 Antibiotics) sulfanilamide Allergy Unknown Unknown Verified 05/10/24 22:02 tramadol AdvReac Severe Sweating Verified 05/10/24 22:02 Review of Systems Review of Systems: As reviewed above in HPI [facility] Past Medical History Medical History Abdominal bloating Anxiety Benign essential HTN BMI greater than 30 Degeneration of spine HLD (hyperlipidemia) IBS (irritable bowel syndrome) Mixed irritable bowel syndrome Right shoulder injury (2004) tendon RUQ discomfort Surgical History Surgical History History of shoulder surgery right side Family History Family History Other Family history of arthritis Family history of emphysema Family history of malignant neoplasm of breast in first degree relative Family history of seizure disorder Social History Social History Smoking packs per day: 0.5 Smoking cigarettes per day: 10.0 Years smoked: 4 Smoking pack-years: 2.00 Smoking status: Former smoker Tobacco type: cigarettes Second hand tobacco smoke exposure: No Alcohol intake: current Drinks per week: 8 Alcohol use details: Hx abuse. Now only drinks occasionally. Substance use: never Substance use type: does not use Lack of Transportation: No Lack of Food: Never True Current Housing: I Have Housing Concerned About Future Housing: No Difficulty Paying Gas/Electric Bills: No Difficulty Paying for Meds: No Currently Unemployed: No Education: Trade/Vocational Certificate Difficulty w/ Childcare or Family Care: No Living arrangements: with family Occupation/Education: occupation Gender identity (if verbalized by the patient): Male Spiritual care concerns: No Agree to blood products: Yes Exam Narrative: GENERAL: Uncomfortable appearing but not any acute distress, answering all questions appropriately HEAD: [Normocephalic, atraumatic.] EYES: [PERRLA and EOMI.] ENT: Nares clear, no rhinorrhea or epistaxis. Mucous membranes moist. NECK: Supple. CHEST: [Clear to auscultation. No respiratory distress.] HEART: [Regular rate and rhythm]. No murmur heard. [Normal peripheral pulses.] ABDOMEN: [Soft, nondistended], tenderness to palpation in right lower quadrant, no peritonitis, no CVA tenderness, no suprapubic tenderness, [No rigidity or guarding] EXTREMITIES:
[2024-05-11] MEDS: HYDROmorphone HCL INJ (*CRX) 1 MG/ML SYR 0.5 MG IV PUSH ×3 (03:13→13:54)
[2024-05-11] MEDS: LACTATED RINGERS 1,000 ML 125 ML IV CONT (03:14)
--- NOTE | 2024-05-11 04:36 | ADMGEN ---
This patient, Peter Escobedo, was admitted to [facility] Surg Room 312-01. Patient/family oriented to hospital policies and general routines including ID bracelet, bed and alarms, visiting hours, pain management, procedures, bathroom and other care routines, personal items, smoking policy, room service/diet, and visiting hours. Information on how to activate the Rapid Response Team has been discussed. Patient/Family are encouraged to report perceived risks to care and to ask questions if they do not understand what they are told or what they should do.
[2024-05-11] MEDS: HYDROmorphone HCL INJ (*CRX) 1 MG/ML SYR IV PUSH (09:38)
--- NOTE | 2024-05-11 10:38 | PC.NURSE ---
To OR per [ ], IV [ ]. Report given to [LUIS FERNANDO].
--- NOTE | 2024-05-11 11:20 | WPDANESEPPF ---
Anes - Initial Pre Proc Eval Procedure: Operation Date: 05/11/24 12:00 Proposed Procedures p Laparoscopic Appendectomy, Possible Open - Johnny Hernandez MD Date/Time: 05/11/24 11:20 Surgeon: Johnny Hernandez MD Pre Op Diagnosis: Acute appendicitis Patient Data Age: 49 Gender: M Height: 1.78 m Weight: 101.3 kg Last Vital Signs Temp 37.3 C 05/11/24 10:50 Pulse 82 05/11/24 10:50 Resp 18 05/11/24 10:50 BP 121/69 05/11/24 10:50 Pulse Ox 97 05/11/24 10:50 O2 Del Method Room Air 05/11/24 07:54 FiO2 21 05/11/24 07:54 Allergies Allergy/AdvReac Type Severity Reaction Status Date / Time naproxen Allergy Mild HIVES Verified 05/11/24 10:55 sulindac Allergy Mild HIVES Verified 05/11/24 10:55 doxycycline Allergy Unknown Unknown Verified 05/11/24 10:55 Sulfa (Sulfonamide Allergy Unknown Unknown Verified 05/11/24 10:55 Antibiotics) sulfanilamide Allergy Unknown Unknown Verified 05/11/24 10:55 tramadol AdvReac Severe Sweating Verified 05/11/24 10:55 Home Medications Medication Instructions Recorded Confirmed Type fexofenadine 30 mg tablet 60 mg PO DAILY 02/24/23 05/11/24 History loratadine 10 mg tablet (Claritin) 10 mg PO DAILY 02/24/23 05/11/24 History cyclobenzaprine 10 mg tablet 10 mg PO TID PRN muscle spasm #90 08/21/23 05/11/24 Rx tabs fenofibrate nanocrystallized 145 145 mg PO DAILY #90 tabs 09/29/23 05/11/24 Rx mg tablet omeprazole 40 mg capsule,delayed 40 mg PO DAILY #90 caps 10/09/23 05/11/24 Rx release fluticasone propionate 50 2 spray intranasal DAILY 10/13/23 05/11/24 History mcg/actuation nasal spray,suspension dicyclomine 20 mg tablet 20 mg PO QID PRN cramping #100 tabs 11/20/23 05/11/24 Rx meloxicam 15 mg tablet 15 mg PO DAILY #90 tabs 04/16/24 05/11/24 Rx metoprolol succinate 50 mg See Rx Instructions .Route 04/16/24 05/11/24 Rx tablet,extended release 24 hr .COMPLEX #90 tabs rosuvastatin 10 mg tablet 10 mg PO DAILY #90 tabs 04/16/24 05/11/24 Rx sertraline 50 mg tablet 50 mg PO DAILY #90 tabs 04/16/24 05/11/24 Rx Laboratory Tests 05/10/24 05/11/24 00:03 00:03 WBC 17.3 H K/mm3 (4.5-10.0) RBC 3.67 L M/mm3 (4.6-6.20) Hgb 11.9 L g/dL (14.0-18.0) Hct 33.4 L % (42.0-52.0) MCV 91.0 fl (80-100) MCH 32.4 pg (26-34) MCHC 35.6 g/dl (32-36) RDW 12.4 % (11.5-14.5) Plt Count 310 k/mm3 (150-375) MPV 9.6 fl (7.4-10.4) Immature Gran % (Auto) 0.5 % (0-0.5) Neut % (Auto) 88.8 H % (45.5-73.1) Lymph % (Auto) 4.4 L % (18.3-44.2) Stoddard % (Auto) 6.0 % (2.6-8.5) Eos % (Auto) 0.1 % (0-4.4) Baso % (Auto) 0.2 % (0.2-1.2) Lymph # (Auto) 0.76 L K/mm3 (0.9-3.2) Stoddard # (Auto) 1.0 H K/mm3 (0.1-0.6) Eos # (Auto) 0.0 K/mm3 (0-0.3) Baso # (Auto) 0.0 K/mm3 (0.0-0.1) Abs Immat Gran (auto) 0.09 H K/mm3 (0.00-0.031) Absolute Neuts (auto) 15.3 H K/mm3 (1.3-6.7) Absolute Nucleated RBC 0.000 K/mm3 (0.0-0.012) Nucleated RBC % 0.0 % (0.0-0.2) Sodium 138 mmol/L (137-145) Potassium 4.3 mmol/L (3.4-5.0) Chloride 97 L mmol/L (98-107) Carbon Dioxide 26 mmol/L (22-30) Anion Gap 15 H mmol/L (4-12) BUN 13 mg/dL (9-20) Creatinine 1.00 mg/dL (0.7-1.3) Estim Creat Clear Calc 92 ml/min Estimated GFR > 60 (59 - ) Glucose 133 H mg/dL (65-110) Calcium 9.2 mg/dL (8.4-10.2) Total Bilirubin 0.7 mg/dL (0.2-1.3) Direct Bilirubin 0.0 mg/dL (0-0.3) AST 30 U/L (17-59) ALT 31 U/L (6-50) Alkaline Phosphatase 55 U/L (38-126) Total Protein 9.0 H g/dL (6.3-8.2) Albumin 5.1 g/dL (3.5-5.1) Lipase 29 U/L (23-300) Urine Color Yellow (Yellow) Urine Appearance Clear (Clear) Urine pH 8.5 (5.0-9.0) Ur Specifi
--- NOTE | 2024-05-11 11:24 | PM.SD2 ---
Same Day Admit/Disch: HPI History of Present Illness Chief complaint: ruptered appendicitis with generalized peritonitis Narrative: Peter Escobedo is a 49 year old male who has irritable bowel syndrome and has had some intermittent right-sided abdominal pain off and on for a few weeks. About 3:00 a.m. yesterday, 30 hours ago, he started having mid abdominal pain that eventually moved to the right lower quadrant. The pain became increasingly more severe and was associated with nausea and vomiting. He also notice some chills. He came to the emergency room yesterday evening. Evaluation there showed him to have guarding and peritoneal signs with right lower quadrant tenderness. [place] [id number]. He had some tachycardia. CT scan showed acute appendicitis. He is still very uncomfortable requiring analgesics. After discussion, he is taken to surgery now for laparoscopic appendectomy. [facility] Past Medical History Medical History Abdominal bloating Anxiety Benign essential HTN BMI greater than 30 Degeneration of spine HLD (hyperlipidemia) IBS (irritable bowel syndrome) Mixed irritable bowel syndrome Right shoulder injury (2004) tendon RUQ discomfort Surgical History Surgical History History of shoulder surgery right side Family History Family History Other Family history of arthritis Family history of emphysema Family history of malignant neoplasm of breast in first degree relative Family history of seizure disorder Social History Social History Smoking packs per day: 0.5 Smoking cigarettes per day: 10.0 Years smoked: 12 Smoking pack-years: 6.00 Smoking status: Former smoker Tobacco type: cigarettes Second hand tobacco smoke exposure: No Alcohol intake: former Drinks per week: 8 Alcohol use details: Hx abuse. Now only drinks occasionally. Substance use: never Substance use type: does not use Do You Feel Safe in your Home?: Yes Lack of Transportation: No Lack of Food: Never True Current Housing: I Have Housing Concerned About Future Housing: No Difficulty Paying Gas/Electric Bills: No Difficulty Paying for Meds: No Currently Unemployed: No Education: High School Diploma/GED Difficulty w/ Childcare or Family Care: No Living arrangements: with family Occupation/Education: occupation Gender identity (if verbalized by the patient): Male Spiritual care concerns: No Agree to blood products: Yes Same Day Admit/Disch: Med Pre-admit Medications Home Medications Medication Instructions Recorded Confirmed Type fexofenadine 30 mg tablet 60 mg PO DAILY 02/24/23 05/11/24 History loratadine 10 mg tablet (Claritin) 10 mg PO DAILY 02/24/23 05/11/24 History cyclobenzaprine 10 mg tablet 10 mg PO TID PRN muscle spasm #90 08/21/23 05/11/24 Rx tabs fenofibrate nanocrystallized 145 145 mg PO DAILY #90 tabs 09/29/23 05/11/24 Rx mg tablet omeprazole 40 mg capsule,delayed 40 mg PO DAILY #90 caps 10/09/23 05/11/24 Rx release fluticasone propionate 50 2 spray intranasal DAILY 10/13/23 05/11/24 History mcg/actuation nasal spray,suspension dicyclomine 20 mg tablet 20 mg PO QID PRN cramping #100 tabs 11/20/23 05/11/24 Rx meloxicam 15 mg tablet 15 mg PO DAILY #90 tabs 04/16/24 05/11/24 Rx metoprolol succinate 50 mg See Rx Instructions .Route 04/16/24 05/11/24 Rx tablet,extended release 24 hr .COMPLEX #90 tabs rosuvastatin 10 mg tablet 10 mg PO DAILY #90 tabs 04/16/24 05/11/24 Rx sertraline 50 mg tablet 50 mg PO DAILY #90 tabs 04/16/24 05/11/24 Rx ibuprofen 600 mg tablet 600 mg PO Q6H PRN pain #30 tabs 05/16/24 Rx levofloxacin 750 mg tablet 750 mg PO DAILY 7 days #7 tabs 05/16/24 Rx metronidazole 500 mg tablet 500 mg PO Q8H 7
[2024-05-11] MEDS: SCOPOLAMINE 1 MG PATCH 1 PATCH TRANSDERM (11:27)
--- NOTE | 2024-05-11 11:42 | WPDHPUPDATE1 ---
History and Physical Update Update Date/Time: 05/11/24 11:42 History and Physical has been reviewed, including an updated exam of the patient. There are NO changes in the patient's condition. Risks, benefits, and alternatives have been discussed and questions answered. Patient agrees to proceed with procedure.
[2024-05-11] MEDS: BUPIVACAINE/EPINEPHRINE 0.5% 10 ML VIAL 20 ML INFILTRATE (12:05)
[2024-05-11] MEDS: LACTATED RINGERS 1,000 ML 30 ML IV CONT ×2 (13:05)
--- NOTE | 2024-05-11 13:23 | W.PM.PROC2 ---
Procedure Note - Detailed Date of Procedure 05/11/24 Pre-op Diagnosis Acute appendicitis with generalized peritonitis Post-op Diagnosis Other (Ruptured appendicitis with generalized peritonitis) Procedure Performed Laparoscopic appendectomy Surgeon Johnny Hernandez MD [facility] Anesthesia General and Local Indications Patient came to the emergency room last night complaining of right lower quadrant abdominal pain. He was exquisitely tender in the right lower quadrant. [place] [address] scan showed acute appendicitis with the 16 mm diameter appendix. After discussion, patient is taken to surgery now for laparoscopic appendectomy. Findings The appendix was gangrenous and had stool within its lumen. As it was mobilized, the necrotic and perforated area of the appendix became evident with leakage of stool. There was no evidence of an abscess. No evidence of a tumor was seen. Description of Procedure Patient was taken to surgery and induced into general anesthesia. The abdomen is prepped and draped. Trocars were placed in the usual fashion using applied Imaxio optical trocars and a 5 mm camera. Patient was placed in Trendelenburg with the right-side elevated. As we came to the area of the terminal ileum and appendix, there were epiploica and other fatty appendages adherent to the appendix. There was some fibrin is, inflammatory adhesion between the structures. He has returned only broken up with the suction. Residual fibrin is material was suctioned away. Eventually we came in contact with the appendix but the mesoappendix was actually laying on the anterior aspect and the appendix itself was adherent to the right posterior abdominal sidewall. I gently started dissection of the appendix from its inflammatory adhesions to the abdominal wall. This was pretty much accomplished but, even though I was only grasping on the fatty mesoappendix, an area in the proximal half of the appendix started to leak liquid brown material consistent with stool within the appendix. This was quickly suctioned away and the appendix was grasped elsewhere so that the leak was not persistent. Dissection was continued. The mesoappendix was carefully dissected primarily using the cautery. The appendiceal artery was thoroughly cauterized and divided. Eventually we dissected through enough that the base of the appendix was skeletonized. In doing this last bit of dissection, more fecal material came from the appendiceal lumen. We went ahead and ligated the appendix at its base with a Vicryl endoloop. It was divided just above the ligature and the mucosa of the appendiceal stump was cauterized. The appendix was then immediately placed in an Endo-Catch bag. Unfortunately, it appeared that some of the fecal in material was on the outer side of the Endo-Catch bag. We went ahead and closed off the Endo-Catch bag and then retrieved it from the 10/11 left lower quadrant trocar site. The appendix was sent off as a specimen. We replaced the 10 11 trocar and reviewed the areas of dissection and the appendiceal stump. All the serous fluid and any liquid stool were for suctioned away. Then repeated irrigation of over a 1000 cc of normal saline was carried out. This involved irrigating the right lower quadrant in the areas of dissection and where the appendix had been and suctioning small amounts of irrigation away. This was repeated over and over until the area was as clean and the irrigant was as clear as it could be. There was no bleeding and the appendiceal stump looked good. I then used a 19 Luxembourger drain and passed it through the 5 mm left mid abdominal trocar. It was positioned in the area of the appendix with ileum and cecum laying over it. I then evacuated CO2 and turned my attention to the 10 11 port that the dirty Endo-Catch bag had been retrieved. This trocar was then removed and discarded. I irrigated the wound here with 500 cc of warm sali
--- NOTE | 2024-05-11 14:31 | PC.NURSE ---
Returned from OR per [ ]. Report received from [Sosa].
[2024-05-11] MEDS: PIPERACILLN/TAZ 3.375GM/NS50ML 3.375 GM/50 ML BAG IVPB ×2 (14:56→20:45)
[2024-05-11] MEDS: LACTATED RINGERS 1,000 ML 100 ML IV CONT (15:33)
[2024-05-11] MEDS: oxyCODONE/ACETAMINOPHEN (*CRX) 5-325 MG TABLET 1 TABLET PO ×2 (17:07→20:45)
[2024-05-11] MEDS: polyethylene glycoL 3350 17 GM POWD.PACK PO (18:24)
[2024-05-11] MEDS: SENNA/DOCUSATE SODIUM TABLET 2 TAB PO (20:45)
[2024-05-12] MEDS: MORPHINE SULFATE (*CRX) 4 MG/ML INJ IV PUSH (02:07)
[2024-05-12] MEDS: PIPERACILLN/TAZ 3.375GM/NS50ML 3.375 GM/50 ML BAG IVPB ×4 (02:07→21:06)
[2024-05-12 05:26] VITALS: BP 130/69; PULSE 71; RESP 20; TEMP 36.4; O2SAT 97
[2024-05-12] MEDS: oxyCODONE/ACETAMINOPHEN (*CRX) 10-325 MG TABLET 1 TAB PO (06:39)
[2024-05-12 06:55] LABS: Hematocrit 30.5 % (42.0-52.0); Hemoglobin 10.1 g/dL (14.0-18.0); Mean Corpuscular HGB Conc 33.1 g/dl (32-36); Mean Corpuscular Hemoglobin 31.4 pg (26-34); Mean Corpuscular Volume 94.7 fl (80-100); Platelet Count Result 242 k/mm3 (150-375); Red Blood Count 3.22 M/mm3 (4.6-6.20); Red Cell Distribution Width 12.7 % (11.5-14.5); White Blood Count 13.3 K/mm3 (4.5-10.0)
[2024-05-12 07:09] LABS: Anion Gap 11 mmol/L (4-12); Blood Urea Nitrogen 17 mg/dL (9-20); Calcium 8.5 mg/dL (8.4-10.2); Carbon Dioxide 24 mmol/L (22-30); Chloride 100 mmol/L (98-107); Estimated CRCL calculation 77 ml/min; Estimated Glomerular Filt Rate > 60; Glucose 118 mg/dL (65-110); Potassium 4.7 mmol/L (3.4-5.0); Sodium 135 mmol/L (137-145)
[2024-05-12] MEDS: ENOXAPARIN 40 MG/0.4 ML SYRINGE SUB-Q (08:08)
[2024-05-12] MEDS: FLUTICASONE PROPIONATE 0.05% NA SPR 16 GM BTL (*BKC) 2 SPRAY NASAL (08:09)
[2024-05-12 08:11] VITALS: PULSE 71
[2024-05-12] MEDS: ROSUVASTATIN 10 MG TABLET PO (08:11)
[2024-05-12] MEDS: SERTRALINE HCL 50 MG TABLET PO (08:11)
[2024-05-12] MEDS: LORATADINE 10 MG TABLET PO (08:11)
[2024-05-12] MEDS: METOPROLOL SUCCINATE EXT REL 50 MG TABCR BY MOUTH (08:11)
[2024-05-12] MEDS: FENOFIBRATE NANOCRYSTALLIZED 145 MG TABLET PO (08:12)
[2024-05-12] MEDS: PANTOPRAZOLE 40 MG TABLET PO (08:12)
[2024-05-12] MEDS: IBUPROFEN IV 800 MG/200 ML 800 MG/200 ML BAG 400 MG IVPB ×2 (10:56→17:48)
--- NOTE | 2024-05-12 13:05 | WPDANESPN ---
Anes - Prog Note Post-Op Date/Time: 05/12/24 13:05 Cardiovascular status: normal Respiratory status: normal Airway patency: baseline Mental status: baseline Post-Op hydration status: normal Vital Signs: Last Vital Signs Temp 36.4 C 05/12/24 05:26 Pulse 71 05/12/24 08:11 Resp 20 05/12/24 05:26 BP 130/69 05/12/24 05:26 Pulse Ox 97 05/12/24 05:26 O2 Del Method Nasal Cannula 05/11/24 14:20 O2 Flow Rate 2 05/11/24 14:20 FiO2 21 05/11/24 07:54 Pain Score (VAS): 10/21 I/O: Intake & Output 05/11/24 05/12/24 05/12/24 23:59 07:59 15:59 Intake Total 840 1130 368 Output Total 50 2180 420 Balance 790 -1050 -52 Laboratory Tests 05/12/24 06:17 05/12/24 06:17 05/12/24 06:17 WBC 13.3 H RBC 3.22 L Hgb 10.1 L Hct 30.5 L MCV 94.7 MCH 31.4 MCHC 33.1 RDW 12.7 Plt Count 242 MPV 10.0 Sodium 135 L Potassium 4.7 Chloride 100 Carbon Dioxide 24 Anion Gap 11 BUN 17 Creatinine 1.20 Estim Creat Clear Calc 77 Estimated GFR > 60 Glucose 118 H Calcium 8.5 Post-procedural complaints: none Patient Feedback: Patient satisfied with anesthetic care.
--- NOTE | 2024-05-12 13:08 | PM.PNGS ---
Progress Note: A&P Assessment and Plan (1) Appendicitis with peritonitis: Code(s): K35.33 - Acute appendicitis with perforation, localized peritonitis, and gangrene, with abscess Status: Acute Assessment and Plan: Continues to have evidence of peritonitis. Continue IV antibiotics and inpatient care. ALYSIA fluid cloudy serous and suspicious for harboring bacteria. Continue full liquids and increase ambulation. I explained to patient that he may develop adynamic ileus and required nasogastric tube. I also explained that it is not unusual to go without a bowel movement for several days with a ruptured appendix and peritonitis. Subjective Subjective Date/Time Seen: 05/12/24 13:08 Post Op day: 1 Patient reports: still having pain, tolerating liquids well, voiding w/o difficulty, flatus, no bowel movement and afebrile Interval history: Patient unable to void last night and had to be straight cathed. Afterwards and particularly this morning he has been urinating without difficulty. Exam Const: General: comfortable, no acute distress, alert, awake and average body habitus Orientation/consciousness: patient oriented x3 and No confusion GI: Inspection: Abdominal wall edema and incision (Dry and healing, ALYSIA cloudy serous output) GI Palp: Yes Tenderness to palpation present (GI) (Diffusely tender consistent with generalized peritonitis), Yes Guarding due to palpation present (GI), No Hernia present, No Palpable mass present and No Ascites present Auscultation: Hypoactive bowel sounds present Objective Data Vital Signs Vital Signs: Vital Signs - 24 hr 05/11/24 13:20 05/11/24 13:32 05/11/24 13:35 Temperature Pulse Rate 104 H 104 H Respiratory Rate 12 11 L Blood Pressure 145/87 H 127/97 H Pulse Oximetry 97 97 97 Oxygen Delivery Simple Face Mask Simple Face Mask Simple Face Mask Oxygen Flow Rate 10 10 10 05/11/24 13:50 05/11/24 14:05 05/11/24 14:20 Temperature Pulse Rate 104 H 104 H 103 H Respiratory Rate 15 11 L 18 Blood Pressure 146/84 H 136/81 128/79 Pulse Oximetry 95 95 96 Oxygen Delivery Nasal Cannula Nasal Cannula Nasal Cannula Oxygen Flow Rate 2 2 2 05/11/24 14:35 05/11/24 14:50 05/11/24 15:18 Temperature 37.3 C 36.9 C 37.2 C Pulse Rate 107 H 97 98 Respiratory Rate 16 16 20 Blood Pressure 127/88 122/72 134/74 Pulse Oximetry 94 95 95 Oxygen Delivery Oxygen Flow Rate 05/11/24 16:18 05/11/24 21:00 05/12/24 05:26 Temperature 37.4 C 37.4 C 36.4 C Pulse Rate 103 H 96 71 Respiratory Rate 16 20 20 Blood Pressure 112/91 H 128/72 130/69 Pulse Oximetry 97 97 97 Oxygen Delivery Oxygen Flow Rate 05/12/24 08:11 Temperature Pulse Rate 71 Respiratory Rate Blood Pressure Pulse Oximetry Oxygen Delivery Oxygen Flow Rate Intake/Output Intake/Output: Intake & Output 05/09/24 05/10/24 05/11/24 05/12/24 23:59 23:59 23:59 23:59 Intake Total 2090 1498 Output Total 180 2600 Balance 1910 -1102 Meds/Results Medications: Active Medications Generic Name Dose Route Start Last Admin Trade Name Freq PRN Reason Stop Dose Admin Acetaminophen 500 mg 05/11/24 14:33 Acetaminophen 500 Mg Tablet PO Q6H PRN Pain Rated 1-3 Cyclobenzaprine HCl 10 mg 05/11/24 14:33 Cyclobenzaprine Hcl 10 Mg Tablet PO TID PRN muscle spasm Dicyclomine HCl 20 mg 05/11/24 14:33 Dicyclomine Hcl 10 Mg Capsule PO QID PRN cramping Diphenhydramine HCl 25 mg 05/11/24 14:33 Diphenhydramine Hcl Inj 50 Mg/Ml Vial IV PUSH Q6H PRN Itching Enoxaparin Sodium 40 mg 05/12/24 09:00 05/12/24 08:08 Enoxaparin 40 Mg/0.4 Ml Syringe SUB-Q 40 mg DAILY JOLEEN Administration Fenofibrate 145 mg 05/12/24 09:00 05/12/24 08:12 Fenofibrate Nanocrystallized 145 Mg Tablet PO 145 mg DAILY JOLEEN Administration Fluticasone Propionate 2 spray 05/12/24 09:00 05/12/24 08:09 Fluticasone Propionate 0.05% Na Spr 16 Gm Btl (*Bkc
[2024-05-12 14:00] VITALS: BP 108/68; PULSE 64; RESP 16; TEMP 36.6; O2SAT 98
[2024-05-12 20:36] VITALS: BP 112/63; PULSE 66; RESP 20; TEMP 37; O2SAT 98
[2024-05-12] MEDS: SENNA/DOCUSATE SODIUM TABLET 2 TAB PO (21:06)
[2024-05-12] MEDS: ACETAMINOPHEN 500 MG TABLET PO (21:06)
[2024-05-13] MEDS: IBUPROFEN IV 800 MG/200 ML 800 MG/200 ML BAG 400 MG IVPB ×3 (02:45→17:53)
[2024-05-13] MEDS: PIPERACILLN/TAZ 3.375GM/NS50ML 3.375 GM/50 ML BAG IVPB ×4 (03:15→20:34)
[2024-05-13] MEDS: oxyCODONE/ACETAMINOPHEN (*CRX) 5-325 MG TABLET 1 TABLET PO ×2 (03:17→10:37)
[2024-05-13 05:39] VITALS: BP 107/68; PULSE 62; RESP 20; TEMP 36.5; O2SAT 99
[2024-05-13 06:13] LABS: Hematocrit 28.6 % (42.0-52.0); Hemoglobin 9.4 g/dL (14.0-18.0); Mean Corpuscular HGB Conc 32.9 g/dl (32-36); Mean Corpuscular Hemoglobin 31.6 pg (26-34); Mean Corpuscular Volume 96.3 fl (80-100); Mean Platelet Volume 9.9 fl (7.4-10.4); Platelet Count Result 229 k/mm3 (150-375); Red Blood Count 2.97 M/mm3 (4.6-6.20); Red Cell Distribution Width 12.5 % (11.5-14.5); White Blood Count 12.2 K/mm3 (4.5-10.0)
[2024-05-13 06:51] LABS: Anion Gap 8 mmol/L (4-12); Blood Urea Nitrogen 18 mg/dL (9-20); Calcium 8.3 mg/dL (8.4-10.2); Carbon Dioxide 26 mmol/L (22-30); Chloride 102 mmol/L (98-107); Estimated CRCL calculation 77 ml/min; Estimated Glomerular Filt Rate > 60; Glucose 84 mg/dL (65-110); Potassium 4.4 mmol/L (3.4-5.0); Sodium 136 mmol/L (137-145)
[2024-05-13] MEDS: FENOFIBRATE NANOCRYSTALLIZED 145 MG TABLET PO (10:26)
[2024-05-13] MEDS: ROSUVASTATIN 10 MG TABLET PO (10:26)
[2024-05-13] MEDS: LORATADINE 10 MG TABLET PO (10:27)
[2024-05-13] MEDS: PANTOPRAZOLE 40 MG TABLET PO (10:27)
[2024-05-13] MEDS: SERTRALINE HCL 50 MG TABLET PO (10:27)
[2024-05-13 10:29] VITALS: PULSE 77
[2024-05-13] MEDS: METOPROLOL SUCCINATE EXT REL 50 MG TABCR BY MOUTH (10:29)
[2024-05-13] MEDS: ENOXAPARIN 40 MG/0.4 ML SYRINGE SUB-Q (10:30)
[2024-05-13] MEDS: FLUTICASONE PROPIONATE 0.05% NA SPR 16 GM BTL (*BKC) 2 SPRAY NASAL (10:30)
[2024-05-13 10:31] VITALS: BP 133/90; PULSE 77; RESP 16; O2SAT 100
[2024-05-13 10:36] VITALS: TEMP 36.5
--- NOTE | 2024-05-13 11:39 | PM.PNGS ---
Progress Note: A&P Assessment and Plan (1) Appendicitis with peritonitis: Code(s): K35.33 - Acute appendicitis with perforation, localized peritonitis, and gangrene, with abscess Status: Acute Assessment and Plan: Postop day 2 following laparoscopic appendectomy for perforated appendicitis, peritonitis is improving. Bowel function has returned. Advance to a low fiber diet. Continue IV antibiotics today. Increase activity as tolerated and ambulate in the halls today. Repeat labs and exam tomorrow. Plan I have discussed the patient's case and plan of care with Dr. Hernandez. Subjective Subjective Date/Time Seen: 05/13/24 11:39 Post Op day: 2 (Laparoscopic appendectomy) Patient reports: tolerating a regular diet, voiding w/o difficulty, flatus, bowel movement (one last night and one this morning) and afebrile Interval history: Chart reviewed. Patient is POD2. He reports still having some lower abdominal pain that is improving daily. His pain is currently controlled with Percocet and IV Ibuprofen. Denies any nausea or vomiting. Tolerated solid foods for breakfast. ALYSIA drain with 30 cc out overnight and 20 cc out yesterday during day shift. Review of Systems Review of Systems: All systems reviewed & are unremarkable except as noted in HPI and below Exam Const: General: comfortable and no acute distress Orientation/consciousness: patient oriented x3 GI: Inspection: non-distended, incision (dry and healing, LLQ dressing dry and intact) and other (ALYSIA drain with cloudy serous fluid) GI Palp: Yes Soft to palpation, Yes Tenderness to palpation present (GI) (tenderness in the RLQ and suprapubic area), No Guarding due to palpation present (GI) and No Rebound tenderness present Auscultation: Hypoactive bowel sounds present Objective Data Vital Signs Vital Signs: Vital Signs - 24 hr 05/12/24 14:00 05/12/24 20:36 05/12/24 20:00 Temperature 97.8 F 98.6 F Pulse Rate 64 66 Respiratory Rate 16 20 Blood Pressure 108/68 112/63 Pulse Oximetry 98 98 Oxygen Delivery Room Air 05/13/24 05:39 05/13/24 10:29 05/13/24 10:31 Temperature 97.7 F Pulse Rate 62 77 77 Respiratory Rate 20 16 Blood Pressure 107/68 133/90 Pulse Oximetry 99 100 Oxygen Delivery 05/13/24 10:36 Temperature 97.7 F Pulse Rate Respiratory Rate Blood Pressure Pulse Oximetry Oxygen Delivery Intake/Output Intake/Output: Intake & Output 05/10/24 05/11/24 05/12/24 05/13/24 23:59 23:59 23:59 23:59 Intake Total 2090 2274 2370 Output Total 180 4350 1830 Balance 1909 -2075 540 Meds/Results Medications: Active Medications Generic Name Dose Route Start Last Admin Trade Name Freq PRN Reason Stop Dose Admin Acetaminophen 500 mg 05/11/24 14:33 05/12/24 21:06 Acetaminophen 500 Mg Tablet PO 500 mg Q6H PRN Administration Pain Rated 1-3 Cyclobenzaprine HCl 10 mg 05/11/24 14:33 Cyclobenzaprine Hcl 10 Mg Tablet PO TID PRN muscle spasm Dicyclomine HCl 20 mg 05/11/24 14:33 Dicyclomine Hcl 10 Mg Capsule PO QID PRN cramping Diphenhydramine HCl 25 mg 05/11/24 14:33 Diphenhydramine Hcl Inj 50 Mg/Ml Vial IV PUSH Q6H PRN Itching Enoxaparin Sodium 40 mg 05/12/24 09:00 05/13/24 10:30 Enoxaparin 40 Mg/0.4 Ml Syringe SUB-Q 40 mg DAILY JOLEEN Administration Fenofibrate 145 mg 05/12/24 09:00 05/13/24 10:26 Fenofibrate Nanocrystallized 145 Mg Tablet PO 145 mg DAILY JOLEEN Administration Fluticasone Propionate 2 spray 05/12/24 09:00 05/13/24 10:30 Fluticasone Propionate 0.05% Na Spr 16 Gm Btl (*Bkc) NASAL 2 spray DAILY JOLEEN Administration Ibuprofen 800 mg in 200 mls @ 400 mls/hr 05/11/24 14:33 05/13/24 10:36 Caldolor 800 Mg/200 Ml IVPB 400 mls/hr Q6H PRN Administration Breakthrough Pain Rated 1-3 or NPO Piperacillin/Tazobactam/Dextrose 3.375 gm in 50 mls @ 100 mls/hr 05/11/24 15:00 05/13/24 10:30 Zosyn 3.375 Gm/Ns 50
[2024-05-13 14:00] VITALS: BP 130/72; PULSE 74; RESP 20; TEMP 36.1; O2SAT 99
[2024-05-13] MEDS: ACETAMINOPHEN 500 MG TABLET PO ×2 (15:38→21:36)
[2024-05-13 20:33] VITALS: BP 121/72; PULSE 70; RESP 16; TEMP 36.4; O2SAT 98
[2024-05-13] MEDS: CYCLOBENZAPRINE HCL 10 MG TABLET PO (21:36)
[2024-05-14] VITALS (8 sets, daily range): BP systolic 112–130; BP diastolic 63–68; PULSE 70–73; RESP 16–21; TEMP 36.1–38.1; O2SAT 98–99
[2024-05-14] MEDS: PIPERACILLN/TAZ 3.375GM/NS50ML 3.375 GM/50 ML BAG IVPB ×4 (03:38→20:33)
[2024-05-14] MEDS: ACETAMINOPHEN 500 MG TABLET PO (04:55)
[2024-05-14 07:26] LABS: Hematocrit 34.1 % (42.0-52.0); Hemoglobin 11.5 g/dL (14.0-18.0); Mean Corpuscular HGB Conc 33.7 g/dl (32-36); Mean Corpuscular Hemoglobin 31.9 pg (26-34); Mean Corpuscular Volume 94.5 fl (80-100); Mean Platelet Volume 9.7 fl (7.4-10.4); Platelet Count Result 322 k/mm3 (150-375); Red Blood Count 3.61 M/mm3 (4.6-6.20); Red Cell Distribution Width 12.3 % (11.5-14.5); White Blood Count 11.9 K/mm3 (4.5-10.0)
[2024-05-14 07:33] LABS: Anion Gap 11 mmol/L (4-12); Blood Urea Nitrogen 13 mg/dL (9-20); Calcium 8.7 mg/dL (8.4-10.2); Carbon Dioxide 25 mmol/L (22-30); Chloride 103 mmol/L (98-107); Estimated CRCL calculation 92 ml/min; Estimated Glomerular Filt Rate > 60; Glucose 94 mg/dL (65-110); Sodium 139 mmol/L (137-145)
[2024-05-14] MEDS: METOPROLOL SUCCINATE EXT REL 50 MG TABCR BY MOUTH (08:28)
[2024-05-14] MEDS: ENOXAPARIN 40 MG/0.4 ML SYRINGE SUB-Q (08:28)
[2024-05-14] MEDS: FENOFIBRATE NANOCRYSTALLIZED 145 MG TABLET PO (08:29)
[2024-05-14] MEDS: PANTOPRAZOLE 40 MG TABLET PO (08:29)
[2024-05-14] MEDS: LORATADINE 10 MG TABLET PO (08:29)
[2024-05-14] MEDS: ROSUVASTATIN 10 MG TABLET PO (08:29)
[2024-05-14] MEDS: SERTRALINE HCL 50 MG TABLET PO (08:29)
[2024-05-14] MEDS: oxyCODONE/ACETAMINOPHEN (*CRX) 5-325 MG TABLET 1 TABLET PO ×2 (09:45→20:52)
[2024-05-14] MEDS: ONDANSETRON INJ 4 MG/2 ML VIAL IV PUSH (09:45)
--- NOTE | 2024-05-14 10:44 | PM.PNGS ---
Progress Note: A&P Assessment and Plan (1) Appendicitis with peritonitis: Code(s): K35.33 - Acute appendicitis with perforation, localized peritonitis, and gangrene, with abscess Status: Acute Assessment and Plan: He had a fever this morning and more RLQ abdominal pain overnight. Repeat CT scan abdomen/pelvis ordered and shows a small fluid collection in the anterior RLQ and another smaller fluid collection in the pelvis. His ALYSIA drain is still in place in the RLQ with no output over the last 24 hours. I will review the CT scan with the Radiologist to see if he would benefit from percutaneous drainage of the RLQ abscess. Continue IV Zosyn. Continue to monitor the ALYSIA drain. He also reports poor appetite this morning. Although documentation shows he is eating full meals, he reports eating less than 30% of his trays. Will add Ensure supplements as well. Plan I have discussed the patient's case and plan of care with Dr. Hernandez. Subjective Subjective Date/Time Seen: 05/14/24 10:44 Post Op day: 3 (Laparoscopic appendectomy) Patient reports: flatus, bowel movement and fever Interval history: Patient reports generalized malaise and increased RLQ abdominal pain today. He had a temp of 100.5F this morning. He states his overall pain has improved, but overnight he had worsening RLQ pain. He also reports a hx of TMJ and started having pain in the right side of his face similar to his TMJ Pain. He typically wears a mouth guard at night to help with his TMJ, which he has not had during this admission. He states he will have someone bring it in. He also had Flexeril last night, which is what he takes as needed for his TMJ pain at home. Exam Const: General: no acute distress Orientation/consciousness: patient oriented x3 GI: Inspection: incision (healing well, no erythema or drainage) and other (mildly distended) GI Palp: Yes Soft to palpation, Yes Tenderness to palpation present (GI) (more tender in the RLQ today with guarding in the RLQ, some mild LLQ TTP), Yes Guarding due to palpation present (GI) (RLQ) and Yes Other GI palpation findings present (ALYSIA drain with nearly no output today, cloudy serous drainage in tubing) Auscultation: Hypoactive bowel sounds present Extrem: General: no calf tenderness and no edema Objective Data Vital Signs Vital Signs: Vital Signs - 24 hr 05/13/24 14:00 05/13/24 20:33 05/14/24 04:55 Temperature 97.0 F L 97.5 F L 100.5 F H Pulse Rate 74 70 Respiratory Rate 20 16 Blood Pressure 130/72 121/72 Pulse Oximetry 99 98 Oxygen Delivery 05/14/24 05:18 05/14/24 06:20 05/14/24 05:55 Temperature 100.5 F H 99.7 F H 99.7 F H Pulse Rate 73 Respiratory Rate 18 Blood Pressure 112/68 Pulse Oximetry 98 Oxygen Delivery 05/14/24 08:28 05/14/24 08:30 05/14/24 08:18 Temperature 98.4 F Pulse Rate 70 Respiratory Rate Blood Pressure Pulse Oximetry Oxygen Delivery Room Air Intake/Output Intake/Output: Intake & Output 05/11/24 05/12/24 05/13/24 05/14/24 23:59 23:59 23:59 23:59 Intake Total 2090 2274 3856 600 Output Total 180 4350 3430 975 Balance 2760 -3583 426 -375 Meds/Results Medications: Active Medications Generic Name Dose Route Start Last Admin Trade Name Freq PRN Reason Stop Dose Admin Acetaminophen 500 mg 05/11/24 14:33 05/14/24 04:55 Acetaminophen 500 Mg Tablet PO 500 mg Q6H PRN Administration Pain Rated 1-3 Cyclobenzaprine HCl 10 mg 05/11/24 14:33 05/13/24 21:36 Cyclobenzaprine Hcl 10 Mg Tablet PO 10 mg TID PRN Administration muscle spasm Dicyclomine HCl 20 mg 05/11/24 14:33 Dicyclomine Hcl 10 Mg Capsule PO QID PRN cramping Diphenhydramine HCl 25 mg 05/11/24 14:33 Diphenhydramine Hcl Inj 50 Mg/Ml Vial IV PUSH Q6H PRN Itching Enoxaparin Sodium 40 mg 05/12/24 09:00 05/14/24 08:28 Enoxaparin 40 Mg/0.4 Ml Syringe SUB-Q 40 mg DAILY JOLEEN Administration Fenofibr
[2024-05-14] MEDS: FLUTICASONE PROPIONATE 0.05% NA SPR 16 GM BTL (*BKC) 2 SPRAY NASAL (12:19)
[2024-05-14] MEDS: IBUPROFEN IV 800 MG/200 ML 800 MG/200 ML BAG 400 MG IVPB (13:37)
[2024-05-14] MEDS: CYCLOBENZAPRINE HCL 10 MG TABLET PO (20:52)
[2024-05-15] MEDS: PIPERACILLN/TAZ 3.375GM/NS50ML 3.375 GM/50 ML BAG IVPB ×4 (02:22→21:08)
[2024-05-15] MEDS: IBUPROFEN IV 800 MG/200 ML 800 MG/200 ML BAG 400 MG IVPB ×2 (02:51→18:13)
[2024-05-15 06:00] VITALS: BP 121/68; PULSE 60; RESP 16; TEMP 36.6; O2SAT 100
[2024-05-15 07:30] LABS: Hematocrit 31.2 % (42.0-52.0); Hemoglobin 10.5 g/dL (14.0-18.0); Mean Corpuscular HGB Conc 33.7 g/dl (32-36); Mean Corpuscular Hemoglobin 31.5 pg (26-34); Mean Corpuscular Volume 93.7 fl (80-100); Mean Platelet Volume 9.6 fl (7.4-10.4); Platelet Count Result 290 k/mm3 (150-375); Red Blood Count 3.33 M/mm3 (4.6-6.20); Red Cell Distribution Width 12.2 % (11.5-14.5); White Blood Count 9.5 K/mm3 (4.5-10.0)
[2024-05-15 07:45] LABS: Anion Gap 9 mmol/L (4-12); Blood Urea Nitrogen 15 mg/dL (9-20); Calcium 8.6 mg/dL (8.4-10.2); Carbon Dioxide 26 mmol/L (22-30); Chloride 103 mmol/L (98-107); Estimated CRCL calculation 92 ml/min; Estimated Glomerular Filt Rate > 60; Glucose 102 mg/dL (65-110); Potassium 4.1 mmol/L (3.4-5.0); Sodium 138 mmol/L (137-145)
[2024-05-15] MEDS: ROSUVASTATIN 10 MG TABLET PO (09:08)
[2024-05-15] MEDS: METOPROLOL SUCCINATE EXT REL 50 MG TABCR BY MOUTH (09:08)
[2024-05-15] MEDS: SERTRALINE HCL 50 MG TABLET PO (09:08)
[2024-05-15] MEDS: LORATADINE 10 MG TABLET PO (09:08)
[2024-05-15] MEDS: FENOFIBRATE NANOCRYSTALLIZED 145 MG TABLET PO (09:08)
[2024-05-15] MEDS: PANTOPRAZOLE 40 MG TABLET PO (09:08)
[2024-05-15] MEDS: ENOXAPARIN 40 MG/0.4 ML SYRINGE SUB-Q (09:09)
[2024-05-15] MEDS: FLUTICASONE PROPIONATE 0.05% NA SPR 16 GM BTL (*BKC) 2 SPRAY NASAL (09:12)
[2024-05-15] MEDS: oxyCODONE/ACETAMINOPHEN (*CRX) 10-325 MG TABLET 1 TAB PO (12:36)
--- NOTE | 2024-05-15 13:52 | PM.PNGS ---
Progress Note: A&P Assessment and Plan (1) Appendicitis with peritonitis: Code(s): K35.33 - Acute appendicitis with perforation, localized peritonitis, and gangrene, with abscess Status: Acute Assessment and Plan: RLQ abdominal pain improving. WBC count trending down to normal and he is afebrile today. CT scan yesterday showed a few small fluid collections, but no organized abscess that would require percutaneous drainage. Continue IV antibiotics. Monitor ALYSIA drain. Will repeat labs and exam again tomorrow. Hopefully he can discharge home on oral antibiotics tomorrow if he continues to improve. Plan I have discussed the patient's case and plan of care with Dr. Hernandez. Subjective Subjective Date/Time Seen: 05/15/24 13:52 Post Op day: 4 (Laparoscopic appendectomy) Patient reports: feels better, pain is less, tolerating a regular diet, flatus and afebrile Interval history: No fevers since yesterday morning. Patient feels much better today. He reports he was able to get up and walk around without any issues. He has more energy and his abdominal pain is less. His pain is still mostly in the RLQ and mild pain in the LLQ, but much improved from yesterday. He denies nausea or vomiting. Still not much of an appetite. He is still having loose stools about 3-5 times daily, which is unchanged. No other complaints. Nursing has changed the dressing around his ALYSIA drain 4 times in the past 24 hours. There is serous drainage leaking around the ALYSIA drain. Review of Systems Review of Systems: All systems reviewed & are unremarkable except as noted in HPI and below Exam Const: General: comfortable and no acute distress Orientation/consciousness: patient oriented x3 GI: Inspection: incision (incisions dry and healing well, no erythema) and other (ALYSIA drain with clear serous drainage today) GI Palp: Yes Soft to palpation, Yes Tenderness to palpation present (GI) (RLQ), Yes Guarding due to palpation present (GI) (voluntary guarding in the RLQ), Yes No hepatosplenomegaly present and No Rebound tenderness present Auscultation: normal bowel sounds Extrem: General: no calf tenderness and no edema Objective Data Vital Signs Vital Signs: Vital Signs - 24 hr 05/14/24 14:00 05/14/24 20:56 05/14/24 20:00 Temperature 97.5 F L 97.0 F L Pulse Rate 71 73 Respiratory Rate 21 H 16 Blood Pressure 121/65 130/63 Pulse Oximetry 99 99 Oxygen Delivery Room Air 05/15/24 06:00 05/15/24 08:00 Temperature 97.8 F Pulse Rate 60 Respiratory Rate 16 Blood Pressure 121/68 Pulse Oximetry 100 Oxygen Delivery Room Air Intake/Output Intake/Output: Intake & Output 05/12/24 05/13/24 05/14/24 05/15/24 23:59 23:59 23:59 23:59 Intake Total 2274 4056 1360 1090 Output Total 4350 3430 2080 Balance -2076 556 -505 1090 Meds/Results Medications: Active Medications Generic Name Dose Route Start Last Admin Trade Name Freq PRN Reason Stop Dose Admin Acetaminophen 500 mg 05/11/24 14:33 05/14/24 04:55 Acetaminophen 500 Mg Tablet PO 500 mg Q6H PRN Administration Pain Rated 1-3 Cyclobenzaprine HCl 10 mg 05/11/24 14:33 05/14/24 20:52 Cyclobenzaprine Hcl 10 Mg Tablet PO 10 mg TID PRN Administration muscle spasm Dicyclomine HCl 20 mg 05/11/24 14:33 Dicyclomine Hcl 10 Mg Capsule PO QID PRN cramping Diphenhydramine HCl 25 mg 05/11/24 14:33 Diphenhydramine Hcl Inj 50 Mg/Ml Vial IV PUSH Q6H PRN Itching Enoxaparin Sodium 40 mg 05/12/24 09:00 05/15/24 09:09 Enoxaparin 40 Mg/0.4 Ml Syringe SUB-Q 40 mg DAILY JOLEEN Administration Fenofibrate 145 mg 05/12/24 09:00 05/15/24 09:08 Fenofibrate Nanocrystallized 145 Mg Tablet PO 145 mg DAILY JOLEEN Administration Fluticasone Propionate 2 spray 05/12/24 09:00 05/15/24 09:12 Fluticasone Propionate 0.05% Na Spr 16 Gm Btl (*Bkc) NASAL 2 spray DAILY JOLEEN Administration Ibuprofen 800 mg in 200 mls @ 400 m
[2024-05-15 14:00] VITALS: BP 148/85; PULSE 93; RESP 20; TEMP 36.8; O2SAT 98
[2024-05-15 20:00] VITALS: PULSE 73; RESP 12; O2SAT 100
[2024-05-15 21:57] VITALS: BP 155/85; PULSE 73; RESP 12; TEMP 36.9; O2SAT 100
[2024-05-16] MEDS: PIPERACILLN/TAZ 3.375GM/NS50ML 3.375 GM/50 ML BAG IVPB ×2 (02:59→08:50)
[2024-05-16 06:00] VITALS: BP 130/72; PULSE 73; RESP 12; TEMP 36.4; O2SAT 99
[2024-05-16] MEDS: oxyCODONE/ACETAMINOPHEN (*CRX) 5-325 MG TABLET 1 TABLET PO (06:07)
[2024-05-16 07:13] LABS: Hematocrit 33.1 % (42.0-52.0); Mean Corpuscular HGB Conc 33.2 g/dl (32-36); Mean Corpuscular Hemoglobin 30.6 pg (26-34); Mean Corpuscular Volume 92.2 fl (80-100); Mean Platelet Volume 9.4 fl (7.4-10.4); Platelet Count Result 368 k/mm3 (150-375); Red Blood Count 3.59 M/mm3 (4.6-6.20)
[2024-05-16 08:49] VITALS: PULSE 73
[2024-05-16] MEDS: METOPROLOL SUCCINATE EXT REL 50 MG TABCR BY MOUTH (08:49)
[2024-05-16] MEDS: SERTRALINE HCL 50 MG TABLET PO (08:49)
[2024-05-16] MEDS: LORATADINE 10 MG TABLET PO (08:49)
[2024-05-16] MEDS: PANTOPRAZOLE 40 MG TABLET PO (08:49)
[2024-05-16] MEDS: ROSUVASTATIN 10 MG TABLET PO (08:49)
[2024-05-16] MEDS: FENOFIBRATE NANOCRYSTALLIZED 145 MG TABLET PO (08:49)
[2024-05-16] MEDS: ENOXAPARIN 40 MG/0.4 ML SYRINGE SUB-Q (08:49)
[2024-05-16] MEDS: FLUTICASONE PROPIONATE 0.05% NA SPR 16 GM BTL (*BKC) 2 SPRAY NASAL (08:50)
--- NOTE | 2024-05-16 12:28 | PM.DS ---
DS: Admitting Diagnosis Discharge Date 05/16/2024 Admitting Diagnosis Acute appendicitis DS: Discharge Diagnosis Discharge Diagnosis (1) Appendicitis with peritonitis: Code(s): K35.33 - Acute appendicitis with perforation, localized peritonitis, and gangrene, with abscess Status: Acute DS: Summary Hospital Course Reason for hospitalization: This is a 49-year-old man who presented to the ED with right-sided abdominal pain. He was evaluated in the emergency room with workup showing CT evidence of acute appendicitis. [place] [address]. He was admitted for surgical evaluation and taken to the OR for urgent appendectomy. Hospital Course: He was started on broad-spectrum IV antibiotics. The patient underwent a laparoscopic appendectomy by Dr. Hernandez on 05/11/2024. He was found to have perforated appendicitis with generalized peritonitis. He had a ALYSIA drain placed during surgery, which has been monitored postoperatively. His diet was slowly advanced with concerns of developing an adynamic ileus. His bowel function returned by postop day 2 and his diet continued to be advanced to a solid diet, which he is tolerating well. Postop day 3 he developed a fever. Serial labs have been monitored and his white blood cell count was trending down since surgery. A repeat CT scan of the abdomen and pelvis was ordered and showed a few small fluid collections, but no well organized abscess that would require percutaneous drainage. IV antibiotics have been continued throughout this hospitalization. His appetite is improving and he is tolerating solids. Today, his white blood cell count did come up slightly to 12,000, but clinically he continues to improve. His abdominal exam continues to improve. ALYSIA drain has minimal serous output. I discussed the patient's case with Dr. Hernandez today, who feels he is stable for discharge with the ALYSIA drain and oral antibiotics. He will follow up with Dr. Hernandez in 4 days and have a repeat CBC as an outpatient. Status at Discharge Functional status at discharge: independent ambulation Overall status at discharge: patient is progressing back to baseline Time Spent with Patient Time attestation: Total time spent providing and/or coordinating discharge services: Time spent: Less than 30 minutes Exam Const: General: comfortable and no acute distress Resp: Effort & Inspection: normal respiratory effort Auscultation: clear to auscultation bilaterally Cardio: Rate: regular rate Rhythm: regular rhythm GI: Inspection: non-distended, incision (incisions dry and intact) and other (ALYSIA drain with scant serous drainage) GI Palp: Yes Soft to palpation, Yes Tenderness to palpation present (GI) (tenderness in the RLQ (improved) and suprapubic area), No Guarding due to palpation present (GI) and No Rebound tenderness present Auscultation: normal bowel sounds Neuro: General: moves all extremities and no focal motor deficits Extrem: General: no calf tenderness and no edema Psych: Mental Status: mental status grossly normal Insight: Good insight present (Psych) DS: Data Data Completed and Pending Completed studies during hospitalization: 05/11/24 12:27 Pathology Report Appendix, appendectomy: - Ruptured acute appendicitis with periappendicitis. - Extensive septal inflammation and fibrosis of surrounding omental tissue - Negative for malignancy. Labs on day of discharge: Labs from last 24 hours 05/16/24 06:40 WBC 12.0 H RBC 3.59 L Hgb 11.0 L Hct 33.1 L MCV 92.2 MCH 30.6 MCHC 33.2 RDW 12.0 Plt Count 368 MPV 9.4 Procedures/Treatments: Procedures Operation Date: 05/11/24 12:00 Actual Procedure Side Surgeon p Laparoscopic Appendectomy Not Applicable Johnny Hernandez MD Imaging Radiologist's impression: ITS Impressions Abdomen/Pelvis CT 05/11/24 07:29 IMPRESSION: 1. Acute uncomplicated appendicitis. Abdomen/Pelvis C
== END 2024-05-16 13:55 | disposition home or self-care (01) | DRG 399 ==
LOC: ANHED 05-11 02:49 → ANH3MEDSUR 05-11 03:57
PROVIDERS: Physician Assistant; Admitting Provider Surgery; Emergency Provider Student in an Organized Health Care Education/Training Program; PCP Family Medicine; Visit Provider Nurse Practitioner Family
PROC: 0DTJ4ZZ Resection of Appendix, Percutaneous Endoscopic Approach (ICD-10-PCS; CPT 44970; principal; 2024-05-11 12:00)
DX: K35.33 Acute appendicitis with perforation, localized peritonitis, and gangrene, with abscess (principal); I10 Essential (primary) hypertension; E78.5 Hyperlipidemia, unspecified; F41.9 Anxiety disorder, unspecified; K58.2 Mixed irritable bowel syndrome; E66.9 Obesity, unspecified; R50.82 Postprocedural fever; Z68.32 Body mass index [BMI] 32.0-32.9, adult; Z87.891 Personal history of nicotine dependence
CPT/HCPCS: 36415; 74177; 80048; 80076; 81001; 83690; 85025; 85027; 88304; 99285; A9270; J0330; J1100; J1170; J1596; J1650; J1741; J2250; J2270; J2371; J2405; J2543; J2704; J3010; J7030; J7120; Q9967

== ENCOUNTER 2024-05-20 08:19 | Outpatient (CLI) | payer OTHER, SELFPAY ==
[2024-05-20 08:44] LABS: Hematocrit 30.5 % (42.0-52.0); Hemoglobin 10.2 g/dL (14.0-18.0); Mean Corpuscular HGB Conc 33.4 g/dl (32-36); Mean Corpuscular Hemoglobin 30.8 pg (26-34); Mean Corpuscular Volume 92.1 fl (80-100); Mean Platelet Volume 8.8 fl (7.4-10.4); Platelet Count Result 389 k/mm3 (150-375); Red Blood Count 3.31 M/mm3 (4.6-6.20); Red Cell Distribution Width 12.1 % (11.5-14.5); White Blood Count 9.9 K/mm3 (4.5-10.0)
[2024-05-20 09:15] LABS: Band Neutrophils Percent 5 % (0-6); Basophils Absolute Manual 0.29 K/mm3 (0.0-0.1); Basophils Percent Manual 3 % (0-1); Eosinophils Absolute Manual 0.19 K/mm3 (0.02-0.50); Eosinophils Percent Manual 2 % (0-4); Lymphocytes Absolute Manual 2.17 K/mm3 (1.1-4.5); Lymphocytes Percent Manual 22 % (18-44); Metamyelocytes Percent 2 %; Monocytes Absolute Manual 0.39 K/mm3 (0.1-0.90); Monocytes Percent Manual 4 % (3-9); Neutrophils Absolute Manual 6.63 K/mm3 (1.3-6.7); Neutrophils Percent Manual 62 % (46-73); Total Cells Counted 100
[2024-05-20 09:16] LABS: Atypical Lymphocytes Present; Platelet Estimate Increased (Adequate); Schistocytes None Seen
== END 2024-05-20 08:20 | disposition home or self-care (01) ==
LOC: ANHLAB 08:20
PROVIDERS: PCP Family Medicine; Visit Provider Nurse Practitioner Family
DX: K35.33 Acute appendicitis with perforation, localized peritonitis, and gangrene, with abscess (principal)
CPT/HCPCS: 36415; 85025

== ENCOUNTER 2024-05-22 07:38 | Outpatient (CLI) | payer OTHER, SELFPAY ==
[2024-05-22 07:56] LABS: Basophils Absolute Auto 0.1 K/mm3 (0.0-0.1); Basophils Percent Auto 0.6 % (0.2-1.2); Eosinophils Absolute Auto 0.2 K/mm3 (0-0.3); Eosinophils Percent Auto 2.2 % (0-4.4); Hematocrit 29.9 % (42.0-52.0); Hemoglobin 10.1 g/dL (14.0-18.0); Immature Granulocyte Percent A 3.7 % (0-0.5); Lymphocytes Absolute Auto 2.07 K/mm3 (0.9-3.2); Lymphocytes Percent Auto 19.4 % (18.3-44.2); Mean Corpuscular HGB Conc 33.8 g/dl (32-36); Mean Corpuscular Hemoglobin 30.9 pg (26-34); Mean Corpuscular Volume 91.4 fl (80-100); Mean Platelet Volume 8.7 fl (7.4-10.4); Monocytes Absolute Auto 0.8 K/mm3 (0.1-0.6); Neutrophils Absolute Auto 7.2 K/mm3 (1.3-6.7); Neutrophils Percent Auto 67.1 % (45.5-73.1); Platelet Count Result 390 k/mm3 (150-375); Red Blood Count 3.27 M/mm3 (4.6-6.20); Red Cell Distribution Width 12.3 % (11.5-14.5); White Blood Count 10.7 K/mm3 (4.5-10.0)
== END 2024-05-22 07:39 | disposition home or self-care (01) ==
PROVIDERS: PCP Family Medicine; Visit Provider Surgery
DX: K35.33 Acute appendicitis with perforation, localized peritonitis, and gangrene, with abscess (principal); K35.80 Unspecified acute appendicitis
CPT/HCPCS: 36415; 85025

== ENCOUNTER 2024-05-23 15:10 | Outpatient (CLI) | payer OTHER, SELFPAY ==
--- NOTE | ~2024-05-23 | CT_ITS ---
EXAMINATION: CT abdomen pelvis wo con DATE: 05/23/2024 15:44 INDICATION: Acute appendicitis with perforation. TECHNIQUE: Computed tomography (CT) of the abdomen and pelvis was performed without intravenous contr ast. Automated exposure control and iterative reconstruction technique were employed. The dose-length product was 898.20 mGy-cm. COMPARISON: CT abdomen pelvis 05/14/2024 FINDINGS: The visualized portions of lung bases are clear without pneumonia or pleural effusion. The heart size is normal. No pericardial effusion. There is diffuse hepatic steatosis. Calcifications in the spleen are consistent with old granulomatous disease. The gallbladder, pancreas, adrenal glands, and kidneys are normal. There are no dilated loops of bowel. There is a fat stranding in the anterior abdominal wall at the sites of recent surgery. There is fat stranding in right lower quadrant, consi stent with inflammation. There are no pathologically enlarged lymph nodes. There is no free intraperi toneal fluid. There is mild lumbar spondylosis. IMPRESSION: 1. No abscess. Reviewed, dictated and finalized at location A. IMPRESSION: 1. No abscess.
== END 2024-05-23 15:11 | disposition home or self-care (01) ==
LOC: ANHIMG 15:11
PROVIDERS: PCP Family Medicine; Visit Provider Surgery
DX: K35.33 Acute appendicitis with perforation, localized peritonitis, and gangrene, with abscess (principal)
CPT/HCPCS: 74176

== ENCOUNTER 2024-05-29 09:12 | Outpatient (CLI) | payer OTHER, SELFPAY ==
[2024-05-29 09:42] LABS: Basophils Absolute Auto 0.1 K/mm3 (0.0-0.1); Basophils Percent Auto 1.2 % (0.2-1.2); Eosinophils Absolute Auto 0.1 K/mm3 (0-0.3); Eosinophils Percent Auto 1.9 % (0-4.4); Hematocrit 33.3 % (42.0-52.0); Hemoglobin 11.3 g/dL (14.0-18.0); Immature Granulocyte Absolute 0.02 K/mm3 (0.00-0.031); Immature Granulocyte Percent A 0.3 % (0-0.5); Mean Corpuscular HGB Conc 33.9 g/dl (32-36); Mean Corpuscular Hemoglobin 31.1 pg (26-34); Mean Corpuscular Volume 91.7 fl (80-100); Mean Platelet Volume 9.2 fl (7.4-10.4); Monocytes Absolute Auto 0.5 K/mm3 (0.1-0.6); Monocytes Percent Auto 7.8 % (2.6-8.5); Neutrophils Absolute Auto 4.5 K/mm3 (1.3-6.7); Neutrophils Percent Auto 67.8 % (45.5-73.1); Platelet Count Result 399 k/mm3 (150-375); Red Blood Count 3.63 M/mm3 (4.6-6.20); Red Cell Distribution Width 12.8 % (11.5-14.5); White Blood Count 6.7 K/mm3 (4.5-10.0)
== END 2024-05-29 09:13 | disposition home or self-care (01) ==
LOC: ANHLAB 09:15
PROVIDERS: PCP Family Medicine; Visit Provider Surgery
DX: K35.33 Acute appendicitis with perforation, localized peritonitis, and gangrene, with abscess (principal)
CPT/HCPCS: 36415; 85025

== ENCOUNTER 2024-07-03 09:53 | Outpatient (CLI) | payer OTHER, SELFPAY ==
[2024-07-03 10:16] LABS: Basophils Absolute Auto 0.1 K/mm3 (0.0-0.1); Basophils Percent Auto 0.9 % (0.2-1.2); Eosinophils Absolute Auto 0.2 K/mm3 (0-0.3); Eosinophils Percent Auto 4.1 % (0-4.4); Hematocrit 35.7 % (42.0-52.0); Hemoglobin 12.3 g/dL (14.0-18.0); Immature Granulocyte Absolute 0.01 K/mm3 (0.00-0.031); Immature Granulocyte Percent A 0.2 % (0-0.5); Lymphocytes Absolute Auto 1.43 K/mm3 (0.9-3.2); Lymphocytes Percent Auto 26.7 % (18.3-44.2); Mean Corpuscular HGB Conc 34.5 g/dl (32-36); Mean Corpuscular Hemoglobin 31.4 pg (26-34); Mean Corpuscular Volume 91.1 fl (80-100); Mean Platelet Volume 9.3 fl (7.4-10.4); Monocytes Absolute Auto 0.5 K/mm3 (0.1-0.6); Monocytes Percent Auto 9.7 % (2.6-8.5); Neutrophils Absolute Auto 3.1 K/mm3 (1.3-6.7); Neutrophils Percent Auto 58.4 % (45.5-73.1); Platelet Count Result 285 k/mm3 (150-375); Red Blood Count 3.92 M/mm3 (4.6-6.20); Red Cell Distribution Width 12.3 % (11.5-14.5); White Blood Count 5.4 K/mm3 (4.5-10.0)
[2024-07-03 10:24] LABS: Alanine Aminotransferase 33 U/L (6-50); Albumin Level 4.9 g/dL (3.5-5.1); Alkaline Phosphatase 49 U/L (38-126); Anion Gap 6 mmol/L (4-12); Aspartate Amino Transferase 42 U/L (17-59); Bilirubin,Total 0.4 mg/dL (0.2-1.3); Blood Urea Nitrogen 17 mg/dL (9-20); Calcium 9.2 mg/dL (8.4-10.2); Carbon Dioxide 32 mmol/L (22-30); Chloride 102 mmol/L (98-107); Cholesterol 183 mg/dL (0-200); Estimated Glomerular Filt Rate > 60; Glucose 91 mg/dL (65-110); HDL Direct 47 mg/dL; Potassium 4.3 mmol/L (3.4-5.0); Sodium 140 mmol/L (137-145); Triglycerides 256 mg/dL (<150)
[2024-07-03 10:37] LABS: LDL Cholesterol Direct 91 mg/dL
[2024-07-03 10:43] LABS: Iron 92 ug/dL (49-181)
[2024-07-03 10:55] LABS: Prostate Specific Antigen 0.6 ng/mL (< OR = 4.0)
[2024-07-03 10:58] LABS: Thyroid Stimulating Hormone 0.664 uIU/mL (0.465-4.680)
[2024-07-03 11:01] LABS: Percent Iron Saturation 24 % (20-50)
[2024-07-03 11:05] LABS: Free T4 Free Thyroxine 0.82 ng/mL (0.78-2.19)
[2024-07-03 11:30] LABS: Folic Acid 12.2 ng/mL (2.76->20)
== END 2024-07-03 09:54 | disposition home or self-care (01) ==
LOC: ANHLAB 09:54
PROVIDERS: PCP Family Medicine; Visit Provider Student in an Organized Health Care Education/Training Program
DX: D64.9 Anemia, unspecified (principal); E55.9 Vitamin D deficiency, unspecified; E78.5 Hyperlipidemia, unspecified; F41.9 Anxiety disorder, unspecified; I10 Essential (primary) hypertension; R53.83 Other fatigue; Z00.00 Encounter for general adult medical examination without abnormal findings; Z12.5 Encounter for screening for malignant neoplasm of prostate
CPT/HCPCS: 36415; 80053; 80061; 82306; 82607; 82728; 82746; 83540; 83550; 84153; 84439; 84443; 85025; G0103

== ENCOUNTER 2025-01-01 09:16 | Outpatient (CLI) | payer OTHER, SELFPAY ==
--- NOTE | ~2025-01-01 | XR_ITS ---
Lumbosacral Spine: AP and lateral views Clinical History: Pain Findings: The normal lordotic curve is maintained. The vertebral bodies and posterior elements are i ntact. The intervertebral disc spaces are preserved. Mild facet joint degenerative changes are prese nt. The sacroiliac joints are normally outlined. Impression: Mild facet joint degenerative change. Reviewed, dictated and finalized at location . Impression: Mild facet joint degenerative change.
--- OUTSIDE RECORDS SUMMARY | 2025-01-01 09:55 | XMS_ITS | Clinical Summary ---
Author Organization [facility] Address [address] [place] [address] Care Team Providers Care Pantograph Engraver Name Role Phone Juliann Willingham MD Primary Care Provider [phone] Source Comments [facility],non-owned Affiliates and Associated Physician Practices is amultiple site organization consisting of ambulatory clinics and hospital sitesin [place], [place], [place] and [place]. This disclosure is being madepursuant to the Care Everywhere program and may not contain all information available regarding this patient. Last updated 18.[facility] [employer] Allergies Active Allergy Reactions Criticality Noted Date Comments Naproxen 01/13/2017 Sulfa Drugs 01/13/2017 swelling Medications * Be aware that medications may not be up to date on this document. Alwaysverify current medications with the patient. dicyclomine (BENTYL) 10 MG capsule Take 10 mg by mouth 4 times daily Active cyclobenzaprine (FLEXERIL) 10 MG tablet Take 10 mg by mouth 3 times daily as needed for Muscle Spasms Active fluticasone hfa 44 (FLOVENT HFA 44) 44 MCG/ACT inhaler Inhale 2 Puffs by mouth 2 times daily Active Social History Tobacco Use Types Packs/Day Years Used Date Smoking Tobacco: Former Smokeless Tobacco: Former Quit: 01/13/2015 Alcohol Use Standard Drinks/Week Comments Yes 0 (1 standard drink = 0.6 oz pur e alcohol) Sex and Gender Information Value Date Recorded Sex Assigned at Not on file Legal Sex Male 11:42 AM CDT Gender Identity Not on file Sexual Orientation Not on file Last Filed Vital Signs Vital Sign Reading Time Taken Comments Blood Pressure - - Pulse - - Temperature - - Respiratory Rate - - Oxygen Saturation - - Inhaled Oxygen Concentration - - Weight 99.8 kg (220 lb) 01/13/2017 7:19 AM CDT Height 180.3 cm (5' 11 ) 01/13/2017 7:19 AM CDT Body Mass Index 30.68 01/13/2017 7:19 AM CDT Plan of Treatment Health Maintenance Due Date Last Done Comments COLOGUARD (AGES 45-75) - COL ON CA SCREENING 1973 COLON MONITORING 1973 COLONOSCOPY - COLON CA SCREENING 1973 CT COLONOGRAPHY - COLON CA SCREENING 1973 Colorectal Cancer Screening 1973 FIT - COLON CA SCREENING 1973 FLEX SIG - COLON CA SCREENING 1973 LIPID TESTING 1973 HIV SCREENING 02/09/1988 HEPATITIS C SCREENING 02/04/1991 DTAP/TDAP/TD VACCINES (1 - Tdap) 02/09/1992 HEPATITIS B VACCINE (1 of 3 - 19+ 3-dose series) 02/09/1992 PNEUMOCOCCAL VACCINE 50+ (1 of 1 - PCV) 2023 ZOSTER VACCINE (1 of 2) 2023 COVID-19 VACCINE (1 - 2023-2 5 season) 2024 DEPRESSION SCREENING 08/14/2024 INFLUENZA VACCINE (Season Ended) 2025 HIB VACCINE Aged Out No longer eligi ble based on patient's age to complete this topic HPV VACCINE Aged Out No longer eligi ble based on patient's age to complete this topic MENINGOCOCCAL (Group B) VACC INE SHARED DECISION-MAKING Aged Out No longer eligibl e based on patient's age to complete this topic MENINGOCOCCAL GROUPS A/C/Y/W VACCINE Aged Out No longer eligible b ased on patient's age to complete this topic Insurance SELF PAY NO INSURANCE Member Subscriber Plan / Payer (Ef fective for All Dates) Name:Brian Escobedo Member ID:Not on file Relation to Subscriber:Not on file Name:BRIAN ESCOBEDO Subscriber ID:Not on file (Home) Address: [address] [place] [address] Payer ID:Not on file Group ID:Not on file Type:Self Pay Address: [facility] Care Teams Pantograph Engraver Relationship Specialty Start Date End Date Juliann Willingham MD [address] [place], [place] [id number] PCP - General Family Medicine 01/12/17
[2025-01-01 10:12] LABS: Basophils Absolute Auto 0.1 K/mm3 (0.0-0.1); Basophils Percent Auto 1.1 % (0.2-1.2); Eosinophils Absolute Auto 0.2 K/mm3 (0-0.3); Eosinophils Percent Auto 3.8 % (0-4.4); Hematocrit 31.2 % (42.0-52.0); Immature Granulocyte Absolute 0.01 K/mm3 (0.00-0.031); Immature Granulocyte Percent A 0.2 % (0-0.5); Lymphocytes Absolute Auto 1.42 K/mm3 (0.9-3.2); Lymphocytes Percent Auto 30.3 % (18.3-44.2); Mean Corpuscular HGB Conc 35.3 g/dl (32-36); Mean Corpuscular Hemoglobin 31.9 pg (26-34); Mean Corpuscular Volume 90.4 fl (80-100); Mean Platelet Volume 8.9 fl (7.4-10.4); Monocytes Absolute Auto 0.4 K/mm3 (0.1-0.6); Neutrophils Absolute Auto 2.6 K/mm3 (1.3-6.7); Neutrophils Percent Auto 55.6 % (45.5-73.1); Platelet Count Result 306 k/mm3 (150-375); Red Blood Count 3.45 M/mm3 (4.6-6.20); White Blood Count 4.7 K/mm3 (4.5-10.0)
[2025-01-01 10:25] LABS: Alanine Aminotransferase 25 U/L (6-50); Albumin Level 4.7 g/dL (3.5-5.1); Alkaline Phosphatase 33 U/L (38-126); Anion Gap 9 mmol/L (4-12); Aspartate Amino Transferase 33 U/L (17-59); Bilirubin,Total 0.3 mg/dL (0.2-1.3); Blood Urea Nitrogen 11 mg/dL (9-20); Carbon Dioxide 28 mmol/L (22-30); Chloride 104 mmol/L (98-107); Cholesterol 145 mg/dL (0-200); Estimated Glomerular Filt Rate > 60; Glucose 88 mg/dL (65-110); HDL Direct 49 mg/dL; Potassium 4.3 mmol/L (3.4-5.0); Sodium 141 mmol/L (137-145); Triglycerides 166 mg/dL (<150)
[2025-01-01 10:36] LABS: LDL Cholesterol Direct 58 mg/dL
[2025-01-01 10:56] LABS: Thyroid Stimulating Hormone 0.259 uIU/mL (0.465-4.680)
[2025-01-01 10:59] LABS: Free T4 Free Thyroxine 1.09 ng/dL (0.78-2.19)
== END 2025-01-01 09:17 | disposition home or self-care (01) ==
LOC: ANHIMG 09:18
PROVIDERS: PCP Family Medicine; Visit Provider Student in an Organized Health Care Education/Training Program
DX: M54.50 Low back pain, unspecified (principal); F41.9 Anxiety disorder, unspecified; I10 Essential (primary) hypertension; E78.5 Hyperlipidemia, unspecified; R53.83 Other fatigue
CPT/HCPCS: 36415; 72100; 80053; 80061; 84439; 84443; 85025

== ENCOUNTER 2025-02-05 11:06 | Outpatient (CLI) | payer OTHER, SELFPAY ==
--- NOTE | ~2025-02-05 | XR_ITS ---
EXAM/ PROCEDURE: XR thoracic spine 3V - 02/05/2025 11:08 CDT HISTORY: 49 years old Male with Thoracic radiculopathy Thoracic radiculopathy COMPARISON: None available TECHNIQUE: Three view(s) FINDINGS/ IMPRESSION: There are no fractures or dislocations.Intervertebral disc spaces are within normal limits. Visualize d portion of lungs are clear. Reviewed, dictated and finalized at location A.
== END 2025-02-05 11:07 | disposition home or self-care (01) ==
LOC: MICIMG 11:07
PROVIDERS: PCP Family Medicine; Visit Provider Physician Assistant
DX: M54.14 Radiculopathy, thoracic region (principal)
CPT/HCPCS: 72072

== ENCOUNTER 2025-02-08 07:30 | Outpatient (CLI) | payer OTHER, SELFPAY ==
--- NOTE | ~2025-02-08 | MR_ITS ---
MRI of the thoracic spine Clinical History: Radiculopathy Technique: Axial T2-weighted and gradient images, and sagittal T1-weighted, T2-weighted, and STIR karen ges were acquired. Findings: There is no fracture or subluxation of the thoracic spine. Vertebral bodies maintain normal height and alignment. No bone marrow signal abnormality seen. There is moderate degenerative disc narrowing at T5-T6, T7-T8, T8-T9. Remaining intervertebral discs are relatively well-preserved. No significant disc bulge or herniation seen at any thoracic level. No spinal canal stenosis or cord compression seen in the thoracic spine. Neural foramina are preserved throughout the thoracic spine. No abnormal signal seen in the spinal cord. Paravertebral soft tissues are unremarkable. Impression: Mild degenerative spondylosis, as above. Reviewed, dictated and finalized at [facility]. Impression: Mild degenerative spondylosis, as above.
== END 2025-02-08 07:31 | disposition home or self-care (01) ==
PROVIDERS: PCP Family Medicine; Visit Provider Physician Assistant
DX: M47.24 Other spondylosis with radiculopathy, thoracic region (principal)
CPT/HCPCS: 72146